=== PATIENT | female | born 1950 | race Caucasian/White ===

== ENCOUNTER 2016-06-25 11:58 | Emergency (ER) | payer OTHER ==
[~2016-06-25 11:58] MED LIST: ALBU8.5H3 IH; ALPR0.254 PO; ATEN100T PO; ESCI10TA PO; FLUT1DIS IH; HYDR25TA9 PO; LEVO25TA4 PO; LORA10TA3 PO; METAMUCIL425 GM PO; MONT10TA9 PO; POLY17PO5 PO; POTA10TA10 PO
[2016-06-25 12:05] VITALS: BP 149/62
[2016-06-25] MEDS ORDERED: IV NORMAL SALINE 1,000ML 1,000 ML IV SCH (12:14)
--- NOTE | 2016-06-25 12:39 | RAD ---
Indication: Mid abdominal pain and nausea for one week. Technique: Abdominal series with PA chest radiograph was obtained. Comparison is from July 31, 2014. Findings: The lungs are clear. The heart is not enlarged. Bowel gas pattern is nonobstructive. There is no free air. Postsurgical changes are noted in the abdomen. There are mild degenerative changes in the spine. There are calcified phleboliths in the pelvis. Impression: Nonobstructive bowel gas pattern.
[2016-06-25] MEDS ORDERED: FAMOTIDINE 20 MG/2 ML VIAL IVP ONE (12:45)
[2016-06-25] MEDS ORDERED: ONDANSETRON PF 4 MG/2 ML VIAL. IV ONE (12:45)
[2016-06-25] MEDS ORDERED: LIDO:MAALOX 1:1 20 ML SINGLE DOSE PO ONE (13:10)
[2016-06-25] MEDS ORDERED: methylPREDNISolone SOD SUCC PF 125 MG/2 ML VIAL. IV ONE (13:10)
[2016-06-25 13:19] LABS: BASO % 0 % (0-3); EOS % 0 % (0-3); HEMATOCRIT 41.6 % (36.0-47.0); HEMOGLOBIN 13.5 g/dL (12.0-15.5); LYMPH # 1.6 x10^3/uL (1.0-4.8); LYMPH % 11 % (24-48); MEAN CORPUSCULAR HEMOGLOBIN 28 pg (25-35); MEAN CORPUSCULAR HGB CONC 32 g/dL (31-37); MEAN CORPUSCULAR VOLUME 86 fL (79-100); MONO # 1.6 x10^3/uL (0.0-1.1); MONO % 11 % (0-9); NEUT # 11.2 x10^3uL (1.8-7.7); NEUT % 78 % (31-73); PLATELET COUNT 271 x10^3/uL (140-400); RED BLOOD COUNT 4.86 x10^6/uL (3.50-5.40); RED CELL DISTRIBUTION WIDTH 13.8 % (11.5-14.5); WHITE BLOOD COUNT 14.4 x10^3/uL (4.0-11.0)
[2016-06-25 13:30] LABS: ALBUMIN 4.2 g/dL (3.4-5.0); ALBUMIN/GLOBULIN RATIO 0.9 (1.0-1.7); CALCIUM 10.7 mg/dL (8.5-10.1); CREATININE 1.3 mg/dL (0.6-1.0); POTASSIUM 3.4 mmol/L (3.5-5.1); TOTAL BILIRUBIN 0.6 mg/dL (0.2-1.0)
--- NOTE | 2016-06-25 13:38 | EKG ---
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
[2016-06-25 13:54] LABS: BARBITURATES NEG (NEG); BENZODIAZEPINES POS (NEG); CANNABINOIDS NEG (NEG); COCAINE NEG (NEG); METHADONE NEG (NEG); OPIATES NEG (NEG); PHENCYCLIDINE NEG (NEG)
[2016-06-25 13:55] LABS: AMPHETAMINE/METHAMPHETAMINE NEG (NEG)
[2016-06-25 14:03] LABS: BILIRUBIN,URINE SMALL (NEG); CLARITY,URINE CLOUDY; COLOR,URINE AMBER; GLUCOSE,URINE NEG (NEG)
[2016-06-25 14:05] LABS: BACTERIA,URINE FEW /HPF (0-FEW); NITRITE,URINE NEG (NEG); RBC,URINE 0 /HPF (0-2); SQUAMOUS EPITHELIAL CELL,UR OCC /LPF; UROBILINOGEN,URINE 1 mg/dL (0.2 mg/dL)
[2016-06-25 14:06] LABS: HYALINE CASTS, URINE MOD /HPF
--- NOTE | 2016-06-25 14:13 | PHYS DOC ---
General Chief Complaint: DIFFICULTY SWALLOWING Stated Complaint: N/V X 2 WK Time Seen by MD: 12:13 Source: patient Exam Limitations: no limitations Problems: History of Present Illness Initial Comments Pt is 66/F to ED c/o difficulty swallowing. Pt has h/o swallowing difficulty, had stricture/esophageal dilatation in past. Last few weeks pt having increasing problems with solid foods. At times they feel stuck and pt will choke and have n/v. Sx are intermittent primarily when eating, no difficulty swallowing secretions no abdominal discomfort no cp/sob. Timing/Duration: 1 week, getting worse Severity: mild Modifying Factors: worse with eating, improves with rest Associated Symptoms: nausea/vomiting Allergies: Coded Allergies: Tetanus Vaccines & Toxoid (Verified Allergy, Intermediate, "Swelling & redness", 08/30/13) aspirin (Verified Allergy, Intermediate, "Ate stomach lining", 08/30/13) Penicillins (Verified Allergy, Mild, "It bothers my stomach", 08/30/13) Past Medical History Medical History: asthma, hypertension, other (esophageal stricture, HTN, constipation, GERD, HTN, hypothyroid, migraine, H. pylori) Surgical History: appendectomy, cholecystectomy, other Social History Smoker: non-smoker Alcohol: none Drugs: none Review of Systems Constitutional: denies chills, denies diaphoresis, denies fever, denies malaise EENTM: see HPI Respiratory: coughdenies shortness of breath, denies wheezing Cardiovascular: denies chest pain, denies palpitations, denies syncope Gastrointestinal: denies abdominal pain, denies diarrhea, denies nausea, vomiting Musculoskeletal: denies back pain, denies joint swelling, denies neck pain Psychiatric/Neurological: denies headache, denies numbness, denies paresthesia Physical Exam General Appearance: no apparent distress, obese Ear, Nose, Throat: hearing grossly normal, normal ENT inspection, normal pharynx Neck: non-tender, supple Respiratory: normal breath sounds, no respiratory distress Cardiovascular: normal peripheral pulses, regular rate, rhythm Gastrointestinal: non tender, soft Extremities: non-tender, normal inspection 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 PHYSICIAN: BSII KIMBROUGH DO REASON: n/v PROCEDURE: ACUTE ABDOMEN SERIES Indication: Mid abdominal pain and nausea for one week. Technique: Abdominal series with PA chest radiograph was obtained. Comparison is from July 31, 2014. Findings: The lungs are clear. The heart is not enlarged. Bowel gas pattern is nonobstructive. There is no free air. Postsurgical changes are noted in the abdomen. There are mild degenerative changes in the spine. There are calcified phleboliths in the pelvis. Impression: Nonobstructive bowel gas pattern. DICTATED AND SIGNED BY: LAURA AGUSTIN MD DATE: 06/25/16 1236 CC: REJI WANG; BISI KIMBROUGH DO ~ Pertinent Labs: WBC 14.4, K+ 3.4, BUN 31, Cr 1.3, CK 251 No evidence aspiration. Liquid K+ rx per pt request, I discussed tx plan including contacting GI tomorrow. Pt expressed agreement/understanding. Departure Time of Disposition: 14:23 Disposition: 01 HOME, SELF-CARE Diagnosis: esophageal stricture, hypokalemia, hypovolemia Condition: GOOD Patient Instructions: Dehydration, Adult, [id number], Esophageal Stricture, Hypokalemia-Brief Additional Instructions: Rest, no strenuous activity. Aggressive hydration, frequent small sips. Clear liquids, advance slowly as tolerated. Rx: KCL liquid suspension, take as directed instead of tablets for now while difficulty swallowing. Call your coat maker tomorrow morning to schedule next available appointment. Return to ED with new or changing symptoms. BISI KIMBROUGH DO Jun 25, 2016 14:13
[2016-06-25] MEDS ORDERED: POTASSIUM CHLORIDE 20 MEQ/15 ML ORAL LIQUID. PO ONE (14:30)
== END 2016-06-25 15:01 | disposition home or self-care (01) ==
LOC: ER 12:00
DX: K22.2 Esophageal obstruction (principal); E86.1 Hypovolemia; E87.6 Hypokalemia; G43.909 Migraine, unspecified, not intractable, without status migrainosus; E03.9 Hypothyroidism, unspecified; I10 Essential (primary) hypertension; J45.909 Unspecified asthma, uncomplicated; K21.9 Gastro-esophageal reflux disease without esophagitis; Z88.0 Allergy status to penicillin; Z90.49 Acquired absence of other specified parts of digestive tract; Z88.6 Allergy status to analgesic agent; Z88.7 Allergy status to serum and vaccine
CPT/HCPCS: 36415; 74022; 80053; 80305; 81001; 82550; 83690; 84484; 85027; 93005; 96361; 96374; 96375; 99285; J2405; J2930; S0028; G0481; J7030

== ENCOUNTER 2017-01-12 00:43 | Emergency (ER) | payer MEDICARE, OTHER ==
[~2017-01-12] VITALS: Ht 167.6 cm; Wt 81.2 kg
[~2017-01-12 00:43] MED LIST changes: -ALBU8.5H3 IH; +ALBU8.5H8 IH; -ESCI10TA PO; +ESCITALOPRAM OX10 MG PO
[2017-01-12 02:00] VITALS: BP 130/77
--- NOTE | 2017-01-12 02:27 | PHYS DOC ---
Past History Past Medical History: Arthritis, Asthma, Bronchitis, Hypertension, Hypothyroid , Other Past Surgical History: No Surgical History Smoking: Non-smoker Alcohol Use: None Drug Use: None Adult General Chief Complaint Chief Complaint: SHORTNESS OF BREATH HPI HPI Patient is a 66-year-old female brought to the ED by family members with the concern for carbon monoxide exposure. The patient has a developmental disability. She lives in an apartment. Tonight about 9:00, her carbon monoxide detector began to alarm. About 2 hours later, she called family to tell them. The patient's niece states that the batteries were and the carbon monoxide detector was , but they called the fire department who said that the carbon monoxide level was 7. Later, the gas company came and said it was 8. At this time, they have not identified a source of the carbon monoxide. Patient answers positively to all questions. Her niece stated that because she has developmental disability, she is probably not answering accurately. The patient does state that she has a headache and "bronchitis", also answers yes to nausea, lightheadedness. Review of Systems Review of Systems Review of systems was not felt to be accurate due to the patient's developmental disability. Allergies Allergies Allergies Coded Allergies Type Severity Reaction Last Updated Verified Tetanus Vaccines & Toxoid Allergy Intermediate "Swelling & redness" 08/30/13 Yes aspirin Allergy Intermediate "Ate stomach lining" 08/30/13 Yes Penicillins Allergy Mild "It bothers my stomach" 08/30/13 Yes Physical Exam Physical Exam Constitutional: Well developed, well nourished, no acute distress, non-toxic appearance. Alert, appears to be mentating at her baseline, not dyspneic, warm and dry. HENT: Normocephalic, atraumatic, bilateral external ears normal, nose normal. [] Eyes: conjunctiva normal, no discharge. [] Neck: Normal range of motion, no stridor. [] Cardiovascular:Heart rate regular rhythm, no murmur [] Lungs & Thorax: Bilateral breath sounds clear to auscultation [] Skin: Warm, dry, no erythema, no rash. [] Extremities: No tenderness, no cyanosis, no clubbing, ROM intact, no edema. [] Neurologic: Alert, normal motor function, no focal deficits noted. [] Current Patient Data Vital Signs Vital Signs Date Time Temp Pulse Resp B/P (MAP) Pulse Ox O2 Delivery O2 Flow Rate FiO2 01/12/17 00:43 74 18 98 Room Air Lab Results Laboratory Tests Test 01/12/17 01:15 Carbon Monoxide, Quantitative 3.7 EKG EKG [] Radiology/Procedures Radiology/Procedures [] Course & Med Decision Making Course & Med Decision Making Pertinent Labs and Imaging studies reviewed. (See chart for details) The noninvasive finger probe carbon monoxide detector was initially used, but readings ranged from below 1 to above 6. We were not able to get what appeared to be an accurate reading from the noninvasive probe. Pulse ox on room air 97-99 %. The patient was placed on oxygen by nasal cannula while obtaining the carboxyhemoglobin level. Venous carboxyhemoglobin level was obtained and is 3.7. The patient is not a smoker, I feel that this probably is a slight elevation for her, but not clinically significant. I discussed this with the patient and her family. Her family plan to take her home to their house today. She will not be returning to her apartment until they can figure out what's going on with the carbon monoxide. See instructions for plan. [] Dragon Disclaimer Dragon Disclaimer This chart was dictated in whole or in part using Voice Recognition software in a busy, high-work load, and often noisy Emergency Department environment. It may contain unintended and wholly unrecognized errors or omissions. Departure Departure: Impression: Primary Impression: Carbon monoxide exposure Disposition: 01 HOME, SELF-CARE Condition: STABLE Referrals: REJI WANG (PCP) Patient Instructions: Carbon Monoxide Poisoning, [id number] Additional Instructions: Tonight, your blood carbon monoxide level was 3.7. This is a slightly high level for a person who does not smoke cigarettes, but it is not high enough to cause problems or symptoms. Because you are uncertain where you might have been exposed to carbon monoxide, I recommend not returning to your home until the authorities are able to determine that the level is safe. Also, before you return to your home, purchase a new carbon monoxide level and ensure that it has batteries and has been tested. BELKIS PRADO MD Jan 12, 2017 02:27
== END 2017-01-12 02:33 | disposition home or self-care (01) ==
LOC: ER 00:46
DX: Z77.028 Contact with and (suspected) exposure to other hazardous aromatic compounds (principal); I10 Essential (primary) hypertension; E03.9 Hypothyroidism, unspecified; J45.909 Unspecified asthma, uncomplicated; M19.90 Unspecified osteoarthritis, unspecified site; Z88.6 Allergy status to analgesic agent; Z88.0 Allergy status to penicillin; Z88.7 Allergy status to serum and vaccine
CPT/HCPCS: 36415; 82375; 99283

== ENCOUNTER 2017-08-28 21:47 | Inpatient (IN) | payer MEDICARE, OTHER ==
[~2017-08-28] VITALS: Ht 160 cm; Wt 85.3 kg
[2017-08-28] MEDS ORDERED: LIDOCAINE 2% 20 ML VIAL. IJ ONE (22:30)
--- NOTE | 2017-08-28 22:43 | PHYS DOC ---
Past History Past Medical History: Arthritis, Asthma, Bronchitis, Depression, GERD, High Cholesterol, Hypertension, Hypothyroid, Other Past Surgical History: No Surgical History Smoking: Non-smoker Alcohol Use: None Drug Use: None Adult General Chief Complaint Chief Complaint: LACERATION/AVULSION HPI HPI Patient is a 67 year old female who presents with complaint of head injury after suffering a fall at home. Patient states that she tried to get up to go use the restroom when she became very lightheaded and dizzy. This caused the patient to fall. The patient struck the top of her head on a garbage can on the floor. Patient accompanied by family member who is concerned that the patient may have had a syncopal episode. This reportedly took place this morning. The patient has no significant cardiac history and had no recent cardiac evaluation. Patient does confirm that she felt very dizzy and lightheaded prior to falling. Denies any chest pain currently but states that she has had "heartburn" off and on over the past several days. Denies any shortness of breath or fever. The patient states that she had bleeding from her scalp and has a laceration as a result of her fall. The patient was able to clean this up prior to arrival. Review of Systems Review of Systems Constitutional: Denies fever or chills [] Eyes: Denies change in visual acuity, redness, or eye pain [] HENT: Denies nasal congestion or sore throat [] Respiratory: Denies cough or shortness of breath [] Cardiovascular: Denies chest pain or edema[] GI: Denies abdominal pain, nausea, vomiting, bloody stools or diarrhea [] : Denies dysuria or hematuria [] Musculoskeletal: Denies back pain or joint pain [] Integument: Scalp laceration[] Neurologic: Dizziness, lightheadedness, denies headache or focal weakness[] All other systems were reviewed and found to be within normal limits, except as documented in this note. Current Medications Current Medications Current Medications Medications (Trade) Dose Ordered Sig/Deshawn Start Time Stop Time Status Last Admin Dose Admin Lidocaine HCl 20 ml 1X ONCE 08/28/17 22:30 08/28/17 22:32 DC Allergies Allergies Allergies Coded Allergies Type Severity Reaction Last Updated Verified Tetanus Vaccines and Toxoid Allergy Intermediate "Swelling & redness" 08/30/13 Yes aspirin Allergy Intermediate "Ate stomach lining" 08/30/13 Yes Penicillins Allergy Mild "It bothers my stomach" 08/30/13 Yes shellfish derived Allergy Unknown 08/28/17 Yes Physical Exam Physical Exam Constitutional: Well developed, well nourished, no acute distress, non-toxic appearance. [] HENT: Normocephalic, 7 cm curvilinear laceration to the parietal scalp, bilateral external ears normal, oropharynx moist, no oral exudates, nose normal. [] Eyes: PERRLA, EOMI, conjunctiva normal, no discharge. [] Neck: Normal range of motion, no tenderness, supple, no stridor. [] Cardiovascular:Heart rate regular rhythm, no murmur [] Lungs & Thorax: Bilateral breath sounds clear to auscultation [] Abdomen: Bowel sounds normal, soft, no tenderness, no masses, no pulsatile masses. [] Skin: Warm, dry, no erythema, no rash. [] Back: No tenderness, no CVA tenderness. [] Extremities: No tenderness, no cyanosis, no clubbing, ROM intact, no edema. [] Neurologic: Alert and oriented X 3, normal motor function, normal sensory function, no focal deficits noted. [] Current Patient Data Vital Signs Vital Signs Date Time Temp Pulse Resp B/P (MAP) Pulse Ox O2 Delivery O2 Flow Rate FiO2 08/28/17 21:50 97.8 67 18 99 Room Air Lab Results Laboratory Tests Test 08/28/17 22:30 White Blood Count 4.5 x10^3/uL Red Blood Count 4.36 x10^6/uL Hemoglobin 12.2 g/dL Hematocrit 37.1 % Mean Corpuscular Volume 85 fL Mean Corpuscular Hemoglobin 28 pg Mean Corpuscular Hemoglobin Concent 33 g/dL Red Cell Distribution Width 16.8 % Platelet Count 208 x10^3/uL Neutrophils (%) (Auto) 65 % Lymphocytes (%) (Auto) 23 % Monocytes (%) (Auto) 10 % Eosinophils (%) (Auto) 1 % Basophils (%) (Auto) 1 % Neutrophils # (Auto) 2.9 x10^3uL Lymphocytes # (Auto) 1.0 x10^3/uL Monocytes # (Auto) 0.4 x10^3/uL Eosinophils # (Auto) 0.0 x10^3/uL Basophils # (Auto) 0.0 x10^3/uL Sodium Level 143 mmol/L Potassium Level 3.7 mmol/L Chloride Level 106 mmol/L Carbon Dioxide Level 28 mmol/L Anion Gap 9 Blood Urea Nitrogen 27 mg/dL Creatinine 1.2 mg/dL Estimated GFR (Cockcroft-Gault) 44.8 BUN/Creatinine Ratio 23 Glucose Level 145 mg/dL Calcium Level 9.4 mg/dL Total Bilirubin 0.4 mg/dL Aspartate Amino Transf (AST/SGOT) 32 U/L Alanine Aminotransferase (ALT/SGPT) 27 U/L Alkaline Phosphatase 55 U/L Troponin I Quantitative < 0.017 ng/mL Total Protein 7.9 g/dL Albumin 3.5 g/dL Albumin/Globulin Ratio 0.8 Current Medications Medications (Trade) Dose Ordered Sig/Deshawn Route PRN Reason Start Time Stop Time Status Last Admin Dose Admin Lidocaine HCl 20 ml 1X ONCE IJ 08/28/17 22:30 08/28/17 22:32 DC 08/28/17 23:10 EKG EKG Interpreted by me: Heart rate 74, sinus rhythm, occasional PVCs, leftward axis, no acute ST/T-wave abnormalities present[] Radiology/Procedures Radiology/Procedures [address] [address] IMAGING REPORT Signed PATIENT: YAMILETH BARRON ACCOUNT: [id number] : 1950 LOCATION: ER AGE: 67 SEX: F EXAM STATUS: REG ER ORD. PHYSICIAN: MENDEZ REES MD REASON: possible syncopal episode, head injury PROCEDURE: CT HEAD WO CONTRAST CT HEAD WO CONTRAST Clinical indications: DIZZINESS, POSSIBLE SYNCOPE EPISODE, FALL, HIT HEAD - LACERATION ON TOP OF HEAD NEAR OCCIPTAL REGION COMPARISON: June 30, 2014. Technique: Noncontrast axial cross sectional scanning of the head was performed. PQRS compliance Statement One or more of the following individualized dose reduction techniques were utilized for this study: 1. Automated exposure control 2. Adjustment of the mA and/or kV according to patient size 3. Use of iterative reconstruction technique Findings: No acute intracranial hemorrhage or midline shift or mass-effect or hydrocephalus or extra-axial fluid collection is seen. No focal hypodense area or sulci effacement is seen to indicate an acute infarct or edema radiographically. No skull fracture or pneumocephalus is seen. No opacification of the mastoid sinuses or the paranasal sinuses is seen. The maxillary sinuses are not completely seen in this study. Impression: No acute intracranial abnormality is seen. Electronically signed by: Leana Silverio MD (08/28/2017 11:02 PM) [facility] DICTATED AND SIGNED BY: LEANA SILVERIO MD DATE: 08/28/17 [id number] CC: MENDEZ REES MD; REJI WANG ~ One view AP chest x-ray interpreted by me: No infiltrate, no effusions, normal cardiac silhouette[] Course & Med Decision Making Course & Med Decision Making Pertinent Labs and Imaging studies reviewed. (See chart for details) Laceration repaired as outlined in the procedure note. Head CT negative. Of concern is the cause of the patient's fall as patient may have experienced a syncopal episode resulting in her fall and head injury. Given lack of any previous workup, the patient is appropriate for admission for further evaluation of syncope. I spoke with Dr. Toscano who accepted care patient in hospital. A consult was placed to Dr. Tenorio of cardiology to follow with patient in hospital. Dragon Disclaimer Dragon Disclaimer This electronic medical record was generated, in whole or in part, using a voice recognition dictation system. Laceration Repair Lac Repair Indication: Scalp laceration Procedure: The patient was placed in the appropriate position and anesthesia around the laceration was achieved with injection of lidocaine 2%. The area was then cleansed with high-pressure normal saline. The laceration was closed using surgical yanci. The wound area was then dressed with clean gauze. Total repaired wound length: 7 cm. Other Items: Total stable count: 6 The patient tolerated the procedure without difficulty. Complications: None. Departure Departure: Impression: Primary Impression: Syncope Additional Impressions: Scalp laceration Hypertension Hyperlipidemia Disposition: 09 ADMITTED INPATIENT Admitting Physician: Maricruz Toscano Condition: STABLE Referrals: REJI WANG (PCP) Problem Qualifiers Primary Impression: Syncope Syncope type: unspecified Qualified Codes: R55 - Syncope and collapse Additional Impressions: Scalp laceration Encounter type: initial encounter Qualified Codes: S01.01XA - Laceration without foreign body of scalp, initial encounter Hypertension Hypertension type: essential hypertension Qualified Codes: I10 - Essential ( primary) hypertension Hyperlipidemia Hyperlipidemia type: unspecified Qualified Codes: E78.5 - Hyperlipidemia, unspecified MENDEZ REES MD August 28, 2017 22:43
[2017-08-28 22:49] LABS: BASO % 1 % (0-3); EOS % 1 % (0-3); HEMATOCRIT 37.1 % (36.0-47.0); HEMOGLOBIN 12.2 g/dL (12.0-15.5); LYMPH % 23 % (24-48); MEAN CORPUSCULAR HEMOGLOBIN 28 pg (25-35); MEAN CORPUSCULAR HGB CONC 33 g/dL (31-37); MEAN CORPUSCULAR VOLUME 85 fL (79-100); MONO # 0.4 x10^3/uL (0.0-1.1); MONO % 10 % (0-9); NEUT # 2.9 x10^3uL (1.8-7.7); NEUT % 65 % (31-73); PLATELET COUNT 208 x10^3/uL (140-400); RED BLOOD COUNT 4.36 x10^6/uL (3.50-5.40); RED CELL DISTRIBUTION WIDTH 16.8 % (11.5-14.5); WHITE BLOOD COUNT 4.5 x10^3/uL (4.0-11.0)
--- NOTE | 2017-08-28 22:57 | EKG ---
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
--- NOTE | 2017-08-28 23:05 | RAD ---
CT HEAD WO CONTRAST Clinical indications: DIZZINESS, POSSIBLE SYNCOPE EPISODE, FALL, HIT HEAD - LACERATION ON TOP OF HEAD NEAR OCCIPTAL REGION COMPARISON: June 30, 2014. Technique: Noncontrast axial cross sectional scanning of the head was performed. PQRS compliance Statement One or more of the following individualized dose reduction techniques were utilized for this study: 1. Automated exposure control 2. Adjustment of the mA and/or kV according to patient size 3. Use of iterative reconstruction technique Findings: No acute intracranial hemorrhage or midline shift or mass-effect or hydrocephalus or extra-axial fluid collection is seen. No focal hypodense area or sulci effacement is seen to indicate an acute infarct or edema radiographically. No skull fracture or pneumocephalus is seen. No opacification of the mastoid sinuses or the paranasal sinuses is seen. The maxillary sinuses are not completely seen in this study. Impression: No acute intracranial abnormality is seen. Electronically signed by: Neftaly Silverio MD (08/28/2017 11:02 PM) [facility]
[2017-08-28 23:11] LABS: ALBUMIN 3.5 g/dL (3.4-5.0); ALBUMIN/GLOBULIN RATIO 0.8 (1.0-1.7); CALCIUM 9.4 mg/dL (8.5-10.1); CREATININE 1.2 mg/dL (0.6-1.0); GFR 44.8; POTASSIUM 3.7 mmol/L (3.5-5.1); TOTAL BILIRUBIN 0.4 mg/dL (0.2-1.0); TOTAL PROTEIN 7.9 g/dL (6.4-8.2)
[2017-08-29] VITALS (8 sets, daily range): BP systolic 101–153; BP diastolic 46–80
--- NOTE | 2017-08-29 00:05 | RAD ---
AP portable chest radiograph 08/28/2017 Clinical History: Dizziness and syncope. An AP erect portable digital radiograph of the chest was obtained. Comparison study is dated 06/25/2016. The cardiac silhouette is mildly enlarged. The thoracic aorta is mildly tortuous. Atherosclerotic calcification of the thoracic aorta is seen. No acute pulmonary infiltrate is noted. No pneumothorax or pleural effusion is seen. Degenerative changes are seen involving the thoracic spine and both shoulders. Impression: No acute abnormality is seen. Electronically signed by: Fab Sweeney MD (08/29/2017 12:02 AM) [facility]
[2017-08-29] MEDS: IV NORMAL SALINE 1,000ML 1,000 ML IV SCH ×2 (01:17→08:34)
[2017-08-29] MEDS: ACETAMINOPHEN 325 MG TABLET PO PRN ×4 (02:04→23:11)
[2017-08-29] MEDS ORDERED: MONT10TA6 PO (03:06)
[2017-08-29] MEDS ORDERED: ALPR1TAB6 PO (03:06)
[2017-08-29] MEDS ORDERED: METO-247 PO (03:06)
[2017-08-29] MEDS ORDERED: DULO60CA6 PO (03:06)
[2017-08-29] MEDS ORDERED: LEVO50TA5 PO (03:06)
[2017-08-29] MEDS ORDERED: POTA20TA4 PO (03:06)
[2017-08-29] MEDS ORDERED: FENO145T30 PO (03:06)
[2017-08-29] MEDS ORDERED: HYDR12.58 PO (03:06)
[2017-08-29] MEDS ORDERED: LEVO5TAB2 PO (03:06)
[2017-08-29] MEDS ORDERED: MELO15TA23 PO (03:06)
[2017-08-29] MEDS ORDERED: FOLI1TAB16 PO (03:06)
[2017-08-29] MEDS ORDERED: OMEP20CA9 PO (03:06)
[2017-08-29] MEDS ORDERED: HYDR200T5 PO (03:06)
[2017-08-29] MEDS ORDERED: METH2.5T PO (03:06)
[2017-08-29] MEDS ORDERED: [UNRECOGNIZED DRUG - CODE] PO (03:31)
[2017-08-29] MEDS: LEVOTHYROXINE 50 MCG TABLET PO SCH (06:22)
[2017-08-29] MEDS ORDERED: ALBUTEROL SULFATE 2.5 MG/3 ML NEBU. NEB PRN ×2 (07:45→14:15)
[2017-08-29] MEDS ORDERED: LACTASE 3,000 UNIT TABLET PO PRN ×2 (08:00)
[2017-08-29] MEDS: DULoxetine HCL 60 MG CAPSULE.DR PO SCH (08:28)
[2017-08-29] MEDS: METOPROLOL SUCC 24HR ER 50 MG TAB.ER.24H. PO SCH (08:29)
[2017-08-29] MEDS: FOLIC ACID 1 MG TABLET PO SCH (08:29)
[2017-08-29] MEDS: FENOFIBRATE NANOCRYSTALLIZED 145 MG TABLET PO SCH (08:29)
[2017-08-29] MEDS: MELOXICAM 15 MG TABLET. PO SCH (08:30)
[2017-08-29] MEDS: hydroCHLOROthiazide 25 MG TABLET PO SCH (08:30)
[2017-08-29] MEDS: HYDROXYCHLOROQUINE 200 MG TABLET PO SCH ×2 (08:30→17:25)
[2017-08-29] MEDS: CETIRIZINE HCL 10 MG TABLET PO SCH ×2 (09:00→21:23)
[2017-08-29] MEDS ORDERED: PSYLLIUM SEED (WITH SUGAR) PACKET. PO PRN (09:00)
[2017-08-29] MEDS ORDERED: POLYETHYLENE GLYCOL 3350 17 GM PACKET. PO PRN (09:00)
--- NOTE | 2017-08-29 09:04 | PDOC2 ---
RAND LINDA APRN 08/29/17 0904: CONSULT Date of Admission DATE: 08/29/17 TIME: 09:03 Reason for Consult: syncope Problem List Problems Medical Problems: (1) Hyperlipidemia Status: Acute (2) Hypertension Status: Acute (3) Scalp laceration Status: Acute (4) Syncope Status: Acute History of Present Illness Ms Villeda is a 67 year old female who presented to the ED after a fall. She is a fairly poor historian but does report getting up to go to the bathroom feeling very dizzy and falling to her knees. She apparently struck her head on the tub and says she just remembers blood all over. She reports having had episodes of dizziness occasionally but is unable to give details. She denies chest discomfort but does complain of dyspnea on exertion. She is [place] [facility] She says up hill she gets very short of breath which is not improved with inhalers, but going down has no symptoms. She denies palpitations or congestive symptoms. Past Medical History Arthritis, Asthma, Bronchitis, Depression, GERD, High Cholesterol, Hypertension , Hypothyroid, depression, anxiety Past Surgical History: Appendectomy, Cholecystectomy, Hysterectomy (bilateral oophorectomy) Family History CAD, CHf Social History non smoker, no significant ETOH, no illicit drugs Current Medications Current Medications Lidocaine HCl 20 ml 1X ONCE IJ Last administered on 08/28/17at 23:10; Start at 22:30; Stop 08/28/17 at 22:32; Status DC Sodium Chloride 1,000 ml @ 125 mls/hr Q8H IV Last administered on 08/29/17at 08 :34; Start 08/29/17 at 00:15; Stop 08/30/17 at 00:14 Acetaminophen (Tylenol) 650 mg PRN Q4HRS PRN PO FEVER Last administered on 08/29at 06:26; Start 08/29/17 at 00:15; Stop 08/30/17 at 00:14 Levothyroxine Sodium (Synthroid) 50 mcg DAILY06 PO Last administered on at 06:22; Start 08/29/17 at 06:00 Potassium Chloride (Klor-Con) 20 meq QHS PO ; Start 08/29/17 at 21:00 Duloxetine HCl (Cymbalta) 60 mg DAILY PO Last administered on 08/29/17 08:28; Start 08/29/17 at 09:00 Fenofibrate (Tricor) 145 mg DAILY PO Last administered on 08/29/17 08:29; Start 08/29/17 at 09:00 Folic Acid (Folic Acid) 1 mg DAILY PO Last administered on 08/29/17 08:29; Start 08/29/17 at 09:00 Hydrochlorothiazide (Hydrodiuril) 25 mg DAILY PO Last administered on 08:30; Start 08/29/17 at 09:00 Hydroxychloroquine Sulfate (Plaquenil) 200 mg BIDWMEALS PO Last administered on 08/29/17 08:30; Start 08/29/17 at 08:00 Lactase (Lactaid) 3,000 unit PRN BFRMEAL PRN PO GI SYMPTOMS; Start 08/29/17 at 08:00; Stop 08/29/17 at 08:00; Status DC Cetirizine HCl (ZyrTEC) 10 mg QHS PO ; Start 08/29/17 at 09:00 Meloxicam (Mobic) 15 mg DAILY PO Last administered on 08/29/17 08:30; Start at 09:00 Methotrexate (Rheumatrex) 10 mg QFR PO ; Start 08/31/17 at 16:00 Metoprolol Succinate (Toprol Xl) 100 mg DAILY PO Last administered on 08:29; Start 08/29/17 at 09:00 Montelukast Sodium (Singulair) 10 mg QHS PO ; Start 08/29/17 at 21:00 Pantoprazole Sodium (Protonix) 40 mg DAILYAC PO ; Start 08/30/17 at 09:00 Polyethylene Glycol (miraLAX) 17 gm PRN DAILY PRN PO CONSTIPATION Last administered on 08/29/17 08:30; Start 08/29/17 at 09:00 Psyllium Hydrophilic Mucilloid (Metamucil) 1 pkt PRN DAILY PRN PO CONSTIPATION Last administered on 08/29/17 08:30; Start 08/29/17 at 09:00 Albuterol Sulfate (Ventolin) 2.5 mg PRN Q6HRS PRN NEB SHORTNESS OF BREATH; Start 08/29/17 at 07:45 Lactase (Lactaid) 9,000 unit PRN BFRMEAL PRN PO GI SYMPTOMS; Start 08/29/17 at 08:00 Active Scripts Active Reported Lactase Fast Acting (Lactase) 9,000 Unit Tablet 9,000 Unit PO PRN Levothyroxine Sodium 50 Mcg Tablet 50 Mcg PO DAILY06 Metoprolol Succinate ( Xl ) (Metoprolol Succinate) 100 Mg Tab.er.24h 100 Mg PO DAILY Levocetirizine Dihydrochloride 5 Mg Tablet 5 Mg PO QHS Singulair Tablet (Montelukast Sodium) 10 Mg Tablet 10 Mg PO HS Cymbalta (Duloxetine Hcl) 60 Mg Capsule.dr 60 Mg PO DAILY Alprazolam 1 Mg Tablet 1 Mg PO QHS Hydrochlorothiazide Tablet (Hydrochlorothiazide) 12.5 Mg Tablet 25 Mg PO DAILY Folic Acid 1 Mg Tablet 1 Mg PO DAILY Methotrexate (Methotrexate Sodium) 2.5 Mg Tablet 4 Tab PO QFR Fenofibrate (Fenofibrate Nanocrystallized) 145 Mg Tablet 145 Mg PO DAILY Hydroxychloroquine Sulfate 200 Mg Tablet 200 Mg PO BIDWMEALS Klor-Con M20 (Potassium Chloride) 20 Meq Tab.er.prt 20 Meq PO QHS Omeprazole 20 Mg Capsule.dr 20 Mg PO BID Meloxicam 15 Mg Tablet 15 Mg PO DAILY Metamucil (Psyllium Seed) 425 Gm Powder 425 Gm PO PRN DAILY PRN Miralax (Polyethylene Glycol 3350) 17 Gm Powd.pack 17 Gm PO PRN DAILY PRN Proair Hfa Inhaler (Albuterol Sulfate) 8.5 Gm Hfa.aer.ad 8.5 Gm IH Advair 100-50 Diskus (Fluticasone/Salmeterol) 1 Each Disk.w.dev 1 Each IH Allergies: Coded Allergies: Tetanus Vaccines and Toxoid (Verified Allergy, Intermediate, "Swelling & redness", 08/30/13) aspirin (Verified Allergy, Intermediate, "Ate stomach lining", 08/30/13) Penicillins (Verified Allergy, Mild, "It bothers my stomach", 08/30/13) shellfish derived (Verified Allergy, Unknown, 08/28/17) Review of System as per HPI General: Alert, Oriented X3, Cooperative, No acute distress HEENT: EOMI, Mucous membr. moist/pink Lungs: Clear to auscultation Heart: Regular rate, Normal S1, Normal S2 Abdomen: Normal bowel sounds, Soft Extremities: No cyanosis, Normal pulses Neuro: Normal speech VITALS Vital Signs Date Time Temp Pulse Resp B/P (MAP) Pulse Ox O2 Delivery O2 Flow Rate FiO2 08/29/17 08:29 65 128/66 08/29/17 06:25 97.4 14 95 Room Air Labs Laboratory Tests Test 08/28/17 22:30 White Blood Count 4.5 x10^3/uL (4.0-11.0) Red Blood Count 4.36 x10^6/uL (3.50-5.40) Hemoglobin 12.2 g/dL (12.0-15.5) Hematocrit 37.1 % (36.0-47.0) Mean Corpuscular Volume 85 fL (79-100) Mean Corpuscular Hemoglobin 28 pg (25-35) Mean Corpuscular Hemoglobin Concent 33 g/dL (31-37) Red Cell Distribution Width 16.8 % (11.5-14.5) Platelet Count 208 x10^3/uL (140-400) Neutrophils (%) (Auto) 65 % (31-73) Lymphocytes (%) (Auto) 23 % (24-48) Monocytes (%) (Auto) 10 % (0-9) Eosinophils (%) (Auto) 1 % (0-3) Basophils (%) (Auto) 1 % (0-3) Neutrophils # (Auto) 2.9 x10^3uL (1.8-7.7) Lymphocytes # (Auto) 1.0 x10^3/uL (1.0-4.8) Monocytes # (Auto) 0.4 x10^3/uL (0.0-1.1) Eosinophils # (Auto) 0.0 x10^3/uL (0.0-0.7) Basophils # (Auto) 0.0 x10^3/uL (0.0-0.2) Sodium Level 143 mmol/L (136-145) Potassium Level 3.7 mmol/L (3.5-5.1) Chloride Level 106 mmol/L (98-107) Carbon Dioxide Level 28 mmol/L (21-32) Anion Gap 9 (6-14) Blood Urea Nitrogen 27 mg/dL (7-20) Creatinine 1.2 mg/dL (0.6-1.0) Estimated GFR (Cockcroft-Gault) 44.8 BUN/Creatinine Ratio 23 (6-20) Glucose Level 145 mg/dL (70-99) Calcium Level 9.4 mg/dL (8.5-10.1) Total Bilirubin 0.4 mg/dL (0.2-1.0) Aspartate Amino Transf (AST/SGOT) 32 U/L (15-37) Alanine Aminotransferase (ALT/SGPT) 27 U/L (14-59) Alkaline Phosphatase 55 U/L (46-116) Troponin I Quantitative < 0.017 ng/mL (0-0.055) Total Protein 7.9 g/dL (6.4-8.2) Albumin 3.5 g/dL (3.4-5.0) Albumin/Globulin Ratio 0.8 (1.0-1.7) Images EKG - sinus rhythm, leftward axis, PVCs. no acute abnormalities. CT - Impression: No acute intracranial abnormality is seen. Assessment/Plan 1. s/p fall, possible syncope 2. lightheadedness/dizziness 3. dyspnea on exertion - possible anginal equivalent 4. hypertension 5. hyperlipidemia Will check echo and carotid duplex, orthostatic VS and plan for MPI in am. Outpatient event monitoring. ADI BAR MD 08/29/17 1254: CONSULT Assessment/Plan Pt. seen and examined. Agree with above EMERGENCY RESPONSE COORDINATOR Note. Poor historian. Non-specific symptoms. Plan for MPI in a.m. Thanks for consultation. RAND LINDA APRN August 29, 2017 09:04 ADI BAR MD August 29, 2017 12:54
--- NOTE | 2017-08-29 16:29 | CARD ---
MR#: [id number] Date of Study: 08/29/2017 Ordering Physician: RAND LINDA, Referring Physician: WIL PECK, Tech: BRIAN Stout APPROVED REPORT EXAM: Two-dimensional and M-mode echocardiogram with Doppler and color Doppler. Other Information Quality : Fair INDICATION Syncope Fall 2D DIMENSIONS Left Atrium(2D)3.7 (1.6-4.0cm)IVSd1.2 (0.7-1.1cm) Aortic Root(2D)1.8 (2.0-3.7cm)LVDd5.1 (3.9-5.9cm) LVOT Diameter1.7 (1.8-2.4cm)PWd1.2 (0.7-1.1cm) LVDs3.1 (2.5-4.0cm)FS (%) 23.0 % LVEF(%)55.0 (>50%) Aortic Valve AoV Peak Cody.125.0cm/Simin Peak GR.6.2mmHg LVOT Peak Cody.96.9cm/sAVA (VMAX)1.79cm2 Mitral Valve MV E Ssshjqyr125.1cm/sMV DECEL [id number] MV A Noxbjmcw096.4cm/sMV OQF47ow E/A Ratio0.9MVA (PHT)4.85cm2 Tricuspid Valve TR P. [id number]/sRAP [id number] TR Peak Gr.96wrReTMOD07iiKj LEFT VENTRICLE The left ventricle is normal size. There is borderline concentric left ventricular hypertrophy. The l eft ventricular systolic function is normal and the ejection fraction is within normal range. The Eje ction Fraction is 55-60%. There is normal LV segmental wall motion. RIGHT VENTRICLE The right ventricle is normal size. There is normal right ventricular wall thickness. The right ventr icular systolic function is normal. ATRIA The left atrium size is normal. The right atrium size is normal. The interatrial septum is intact wit h no evidence for an atrial septal defect or patent foramen ovale as noted on 2-D or Doppler imaging. AORTIC VALVE The aortic valve is not well visualized. Doppler and Color Flow revealed trace aortic regurgitation. There is no significant aortic valvular stenosis. MITRAL VALVE The mitral valve is not well visualized. There is no mitral valve stenosis. Doppler and Color-flow re vealed mild mitral regurgitation. TRICUSPID VALVE The tricuspid valve is not well visualized. Doppler and Color Flow revealed trace tricuspid regurgita tion. PULMONIC VALVE The pulmonic valve is not well visualized. Doppler and Color Flow revealed trace pulmonic valvular re gurgitation. There is no pulmonic valvular stenosis. GREAT VESSELS The aortic root is not well visualized. The IVC is normal in size and collapses >50% with inspiration . There are very limited subcostal views. PERICARDIAL EFFUSION There is no pleural effusion. There is no evidence of significant pericardial effusion. Critical Notification Critical Value: No <Conclusion> The left ventricle is normal size. The left ventricular systolic function is normal and the ejection fraction is within normal range. The Ejection Fraction is 55-60%. There is borderline concentric left ventricular hypertrophy. There is no significant aortic valvular stenosis. Doppler and Color Flow revealed trace aortic regurgitation. Doppler and Color-flow revealed mild mitral regurgitation. Doppler and Color Flow revealed trace tricuspid regurgitation. Signed by : Reid Goodwin MD Electronically Approved : 08/29/2017 16:28:09
[2017-08-29] MEDS: traMADol 50 MG TABLET PO PRN ×2 (17:25→18:06)
--- NOTE | 2017-08-29 17:28 | HP ---
ADMIT DATE: 08/28/2017 HISTORY OF PRESENT ILLNESS: The patient is a 67-year-old female patient who apparently was brought to the Emergency Room after a fall. She was not really very specific about the surrounding of her fall, but she apparently got up to the bathroom being feeling very dizzy and falling to her knees. She apparently struck her head on the tub and she just remembered blood all over. She reports having had episodes of dizziness occasionally, but is unable to give any details. She denied any chest discomfort. Denied any palpitation. She basically was found to have sustained large scalp laceration that was stapled and was admitted for further evaluation. Her first set of cardiac enzyme was less than 0.017. The patient was admitted to do 2 more sets of cardiac enzymes, consult the Cardiology team to check her orthostatics. PAST MEDICAL HISTORY: Significant for rheumatoid arthritis, bronchial asthma, severe gastroesophageal reflux disease, hyperlipidemia, hypertension, hypothyroidism, depression, anxiety. PAST SURGICAL HISTORY: Significant for appendectomy, cholecystectomy, hysterectomy and bilateral salpingo-oophorectomy. FAMILY HISTORY: Positive for diabetes, coronary artery disease, and congestive heart failure. She is actually ____ sibling, only one brother still alive. Her father at the age of 63. He is known to have diabetes, coronary artery disease, and congestive heart failure. Mother of complications of hypertension and myocardial infarction. SOCIAL HISTORY: She lives on her own and she is fairly independent. The only thing she is unable to do is to drive her car, so her granddaughter did drive her to do shopping; however, she does not smoke, drink alcohol or use any recreational drugs. REVIEW OF SYSTEMS: She has bilateral cataracts, but denied any blurring of vision, glaucoma or macular degeneration. She has bilateral hearing aid. She did complain of stuffy nose because of environmental allergies, but denied any nosebleed or postnasal drip. Denied any sore throat, sore tongue, toothache, or hoarseness of voice. She did have difficulty swallowing and she has apparently esophageal stricture, was dilated about a year ago. She does complain of problem swallowing her pills, but has no problem with liquids. Has occasional diarrhea, but no constipation. Denied any hematemesis, melena or hematochezia. Denied any dysuria, frequency or hematuria. Denied any chest pain or shortness of breath except on exertion. Denied any orthopnea or paroxysmal nocturnal dyspnea. Denied any cough, phlegm or hemoptysis. Denied any chills, rigors, or fever. She did complain obviously of dizziness, but no vertigo. ALLERGIES: SHE IS ALLERGIC TO PENICILLIN, TETANUS VACCINE AND TOXOID. SHE IS ALSO ALLERGIC TO ASPIRIN AND SHELLFISH DERIVED PRODUCTS. MEDICATIONS: She is currently on following medications: She is on levocetirizine dihydrochloride 5 mg once a day, hydroxychloroquine sulfate 200 mg twice a day with meals. She is on methotrexate, she takes 2.5 mg, she takes 6 tablets every Sunday. She is on albuterol sulfate for ProAir 1 puff 4 times a day, fenofibrate 145 mg once a day, metoprolol succinate 100 mg once a day, Meloxicam 15 mg daily, duloxetine 60 mg daily, alprazolam 1 mg p.o. bedtime, potassium chloride 20 mEq p.o. at bedtime, hydrochlorothiazide 25 mg daily, fluticasone-salmeterol for Advair Diskus 100/50 one inhalation once a day, Singulair 10 mg at bedtime, polyethylene glycol 17 grams daily p.r.n. for constipation. She is on lactase 9000 units daily p.r.n., omeprazole 20 mg p.o. b.i.d., levothyroxine 50 mcg once a day, folic acid 1 mg once a day, psyllium seed for Metamucil 525 mg p.o. daily p.r.n. for constipation. PHYSICAL EXAMINATION: GENERAL: On arrival to the Emergency Room, she looked well and was clearly in no apparent respiratory distress. There was no pallor, jaundice, cyanosis or thyromegaly. No jugular venous distension. No lower limb edema. She has a large laceration on the scalp that was cleaned and stapled by the ER physician. HEAD, EYES, EARS, NOSE AND THROAT: Normocephalic and atraumatic. NECK: Supple. HEART: Showed normal first and second heart sounds with no gallop, rub or murmur. CHEST: Clear to auscultation. No crepitation or rhonchi. ABDOMEN: Distended, soft, and nontender. No guarding or rigidity. No organomegaly. Hernial orifice intact. Bowel sounds normal. NEUROLOGIC: She is awake, alert, and responding appropriately. Cranial nerves intact. EXTREMITIES: She moves extremities without difficulty. She apparently was able to ambulate to the bathroom with minimal assistance. LABORATORY AND DIAGNOSTIC DATA: On admission showed a white cell count 4500, hemoglobin 12, hematocrit 37, MCV 85, and platelet count of 208,000. Her chemistry showed serum sodium of 143, potassium 3.7, chloride 106, bicarbonate 28, anion gap of 9, BUN 27, creatinine 1.2, estimated GFR was 44 mL per minute. Her glucose was 145, calcium was 9.4. Total bilirubin, AST, ALT, alkaline phosphatase were normal. Her first set of cardiac enzymes show troponin to be less than 0.017. Total protein was 7.9, albumin was 3.5. She has had a CT scan of the head, which basically showed no acute intracranial hemorrhage, midline shift, mass effect, hydrocephalus or extraaxial fluid collection is seen. No focal hypodense area or sulci effacement is seen to indicate an acute infarct or edema radiographically. No skull fracture or pneumocephalus is seen. No opacification of the mastoid sinuses or paranasal sinuses seen. The maxillary sinuses are not completely seen in this study. She had an EKG, which showed that she was in sinus rhythm with a heart rate of 74 beats per minute with occasional PVCs, leftward axis, no acute ST-T changes seen. ASSESSMENT AND PLAN: The patient was admitted to do 2 more sets of cardiac enzyme, consult the Cardiology team and if need be, we will check her orthostatics. Check carotid Doppler and echocardiogram and decide further management accordingly. WIL PECK MD DR: ALDO/sadia JOB#: [id number] / [id number]
--- NOTE | 2017-08-29 18:37 | RAD ---
MR#: [id number] Date of Study: 08/29/2017 Ordering Physician: RAND LINDA, Referring Physician: WIL PECK Tech: Odalis Avitia RDMS, RVT, RTR APPROVED REPORT Patient Location: IN-PATIENT Laterality:Bilateral Indications Syncope Grayscale images of the bilateral common carotid, internal and external carotid vessels do not reveal any significant obstructive plaque. Color Doppler and spectral imaging does not show any evidence of obstructive disease. Overall peak sy stolic velocities in the internal carotid artery bilaterally are less than 70 cm/s suggestive overall of 0 to less than 50% stenosis. Bilateral ICA to CCA ratios are also within normal limits. Bilateral external carotid artery velocities are grossly within normal limits. Bilateral vertebral velocities are antegrade in nature. Risk Factors Hypertension: Hyperlipidemia Critical Notification Critical Value: No <Conclusion> No significant carotid arterial disease bilaterally. Signed by : Kal Terry, Electronically Approved : 08/29/2017 18:37:00
[2017-08-29] MEDS ORDERED: POTASSIUM CHLORIDE 20 MEQ TABLET.ER. PO SCH (21:00)
[2017-08-29] MEDS ORDERED: MONTELUKAST 10 MG TABLET. PO SCH (21:00)
--- NOTE | 2017-08-30 04:14 | PN ---
DATE: SUBJECTIVE: The patient was admitted yesterday following syncopal episode, sustaining a laceration of her scalp that was stapled by the ER physician. Her first set of cardiac enzyme was normal. She was admitted to do 2 more sets of cardiac enzyme and to consult the cardiology team. When I saw her today, she looked well and was clearly in no apparent respiratory distress. She denied any complaint. Apparently, she has been up and walking from the bed to the bathroom without difficulty. Her wound looks healing very well with no redness, tenderness or discharge. OBJECTIVE: GENERAL: On examining her, she looked pale, no jaundice, cyanosis, or thyromegaly. No jugular venous distension. No limb edema. VITAL SIGNS: Her heart rate was 58, blood pressure was 111/66, temperature was 97.4, respiratory rate was 14 and oxygen saturation was 95% on room air. HEAD, EYES, EARS, NOSE AND THROAT: Showed normocephalic, status post laceration that was stapled. NECK: Supple. HEART: Showed normal first and second sounds. No gallop, rub or murmur. CHEST: Clear to auscultation. No crepitation or rhonchi. ABDOMEN: Distended, soft, nontender. NEUROLOGIC: She is awake, alert, responding appropriately. Cranial nerves are intact. She moves extremities without difficulty. She ambulates with minimal assistance. LABORATORY DATA: No lab work done today except that another set of cardiac enzyme was normal of less than 0.017. Her fasting lipid profile showed that her serum triglycerides were 85, total cholesterol was 112, LDL cholesterol was 62, VLDL was 17, and HDL cholesterol was 33 and the ratio was 3. She was seen by the Cardiology team and the plan is to do an echocardiogram and a stress test tomorrow. We also ordered bilateral carotid Doppler. We have consulted physical and occupational therapy. We will check her orthostatics. Continue on her medication. WIL PECK MD DR: ALDO/sadia JOB#: [id number] / [id number]
[2017-08-30] MEDS: LEVOTHYROXINE 50 MCG TABLET PO SCH (05:32)
[2017-08-30 05:38] VITALS: BP 114/69
[2017-08-30 06:23] LABS: CALCIUM 8.7 mg/dL (8.5-10.1); CREATININE 0.9 mg/dL (0.6-1.0); GFR 62.5; POTASSIUM 3.8 mmol/L (3.5-5.1)
[2017-08-30 06:30] LABS: BASO % 1 % (0-3); EOS % 1 % (0-3); HEMATOCRIT 32.8 % (36.0-47.0); HEMOGLOBIN 10.6 g/dL (12.0-15.5); LYMPH # 1.4 x10^3/uL (1.0-4.8); LYMPH % 33 % (24-48); MEAN CORPUSCULAR HEMOGLOBIN 28 pg (25-35); MEAN CORPUSCULAR HGB CONC 32 g/dL (31-37); MEAN CORPUSCULAR VOLUME 85 fL (79-100); MONO # 0.4 x10^3/uL (0.0-1.1); MONO % 9 % (0-9); NEUT # 2.3 x10^3uL (1.8-7.7); NEUT % 56 % (31-73); PLATELET COUNT 171 x10^3/uL (140-400); RED BLOOD COUNT 3.85 x10^6/uL (3.50-5.40); RED CELL DISTRIBUTION WIDTH 16.8 % (11.5-14.5); WHITE BLOOD COUNT 4.1 x10^3/uL (4.0-11.0)
[2017-08-30] MEDS ORDERED: REGADENOSON 0.4 MG/5 ML DISP.SYRIN. IV ONE (08:00)
[2017-08-30] MEDS ORDERED: PANTOPRAZOLE 40 MG TABLET. PO SCH (09:00)
[2017-08-30 10:08] VITALS: BP 145/86
[2017-08-30] MEDS: FOLIC ACID 1 MG TABLET PO SCH (10:12)
[2017-08-30] MEDS: DULoxetine HCL 60 MG CAPSULE.DR PO SCH (10:12)
[2017-08-30] MEDS: HYDROXYCHLOROQUINE 200 MG TABLET PO SCH (10:12)
[2017-08-30] MEDS: METOPROLOL SUCC 24HR ER 50 MG TAB.ER.24H. PO SCH (10:13)
[2017-08-30] MEDS: hydroCHLOROthiazide 25 MG TABLET PO SCH (10:13)
[2017-08-30] MEDS: MELOXICAM 15 MG TABLET. PO SCH (10:13)
[2017-08-30] MEDS: FENOFIBRATE NANOCRYSTALLIZED 145 MG TABLET PO SCH (10:14)
--- NOTE | 2017-08-30 11:29 | PDOC ---
PROGRESS NOTES Diagnosis Problem Problems Medical Problems: (1) Hyperlipidemia Status: Acute (2) Hypertension Status: Acute (3) Scalp laceration Status: Acute (4) Syncope Status: Acute Assessment Problems Medical Problems: (1) Hyperlipidemia Status: Acute (2) Hypertension Status: Acute (3) Scalp laceration Status: Acute (4) Syncope Status: Acute 1. s/p fall, possible syncope - no significant arrhythmias. Negative orthostatics 2. lightheadedness/dizziness - carotid duplex unremarkable. 3. dyspnea on exertion - possible anginal equivalent, Echo revealed normal LV function and wall motion. MPI pending. 4. hypertension - controlled. 5. hyperlipidemia - controlled. Await MPI results. Outpatient event monitor. Subjective no new complaints. Objective Vital Signs Date Time Temp Pulse Resp B/P (MAP) Pulse Ox O2 Delivery O2 Flow Rate FiO2 08/30/17 10:13 78 145/86 08/30/17 10:08 98.1 18 95 Room Air Intake and Output 08/30/17 07:00 Intake Total 1810 ml Balance 1810 ml Intake Oral 720 ml IV Total 1090 ml # Voids 3 Abdomen: Normal bowel sounds, Soft Heart: Regular rate, Normal S1, Normal S2 Extremities: No cyanosis, Normal pulses General: Alert, Oriented X3, Cooperative, No acute distress Lungs: Clear to auscultation Neuro: Normal speech Psych/Mental Status: Mental status NL, Mood NL Review of Relevant I have reviewed the following items kev (where applicable) has been applied. Labs Laboratory Tests Test 08/28/17 22:30 08/29/17 09:46 08/30/17 06:00 White Blood Count 4.5 x10^3/uL (4.0-11.0) 4.1 x10^3/uL (4.0-11.0) Red Blood Count 4.36 x10^6/uL (3.50-5.40) 3.85 x10^6/uL (3.50-5.40) Hemoglobin 12.2 g/dL (12.0-15.5) 10.6 g/dL (12.0-15.5) Hematocrit 37.1 % (36.0-47.0) 32.8 % (36.0-47.0) Mean Corpuscular Volume 85 fL (79-100) 85 fL (79-100) Mean Corpuscular Hemoglobin 28 pg (25-35) 28 pg (25-35) Mean Corpuscular Hemoglobin Concent 33 g/dL (31-37) 32 g/dL (31-37) Red Cell Distribution Width 16.8 % (11.5-14.5) 16.8 % (11.5-14.5) Platelet Count 208 x10^3/uL (140-400) 171 x10^3/uL (140-400) Neutrophils (%) (Auto) 65 % (31-73) 56 % (31-73) Lymphocytes (%) (Auto) 23 % (24-48) 33 % (24-48) Monocytes (%) (Auto) 10 % (0-9) 9 % (0-9) Eosinophils (%) (Auto) 1 % (0-3) 1 % (0-3) Basophils (%) (Auto) 1 % (0-3) 1 % (0-3) Neutrophils # (Auto) 2.9 x10^3uL (1.8-7.7) 2.3 x10^3uL (1.8-7.7) Lymphocytes # (Auto) 1.0 x10^3/uL (1.0-4.8) 1.4 x10^3/uL (1.0-4.8) Monocytes # (Auto) 0.4 x10^3/uL (0.0-1.1) 0.4 x10^3/uL (0.0-1.1) Eosinophils # (Auto) 0.0 x10^3/uL (0.0-0.7) 0.0 x10^3/uL (0.0-0.7) Basophils # (Auto) 0.0 x10^3/uL (0.0-0.2) 0.0 x10^3/uL (0.0-0.2) Sodium Level 143 mmol/L (136-145) 144 mmol/L (136-145) Potassium Level 3.7 mmol/L (3.5-5.1) 3.8 mmol/L (3.5-5.1) Chloride Level 106 mmol/L (98-107) 108 mmol/L (98-107) Carbon Dioxide Level 28 mmol/L (21-32) 27 mmol/L (21-32) Anion Gap 9 (6-14) 9 (6-14) Blood Urea Nitrogen 27 mg/dL (7-20) 16 mg/dL (7-20) Creatinine 1.2 mg/dL (0.6-1.0) 0.9 mg/dL (0.6-1.0) Estimated GFR (Cockcroft-Gault) 44.8 62.5 BUN/Creatinine Ratio 23 (6-20) Glucose Level 145 mg/dL (70-99) 99 mg/dL (70-99) Calcium Level 9.4 mg/dL (8.5-10.1) 8.7 mg/dL (8.5-10.1) Total Bilirubin 0.4 mg/dL (0.2-1.0) Aspartate Amino Transf (AST/SGOT) 32 U/L (15-37) Alanine Aminotransferase (ALT/SGPT) 27 U/L (14-59) Alkaline Phosphatase 55 U/L (46-116) Troponin I Quantitative < 0.017 ng/mL (0-0.055) < 0.017 ng/mL (0-0.055) Total Protein 7.9 g/dL (6.4-8.2) Albumin 3.5 g/dL (3.4-5.0) Albumin/Globulin Ratio 0.8 (1.0-1.7) Triglycerides Level 85 mg/dL (0-150) Cholesterol Level 112 mg/dL (0-200) LDL Cholesterol, Calculated 62 mg/dL (0-100) VLDL Cholesterol, Calculated 17 mg/dL (0-40) Non-HDL Cholesterol Calculated 79 mg/dL (0-129) HDL Cholesterol 33 mg/dL (40-60) Cholesterol/HDL Ratio 3.0 Medications Current Medications Lidocaine HCl 20 ml 1X ONCE IJ Last administered on 08/28/17at 23:10; Start at 22:30; Stop 08/28/17 at 22:32; Status DC Sodium Chloride 1,000 ml @ 125 mls/hr Q8H IV Last administered on 08/29/17at 08 :34; Start 08/29/17 at 00:15; Stop 08/29/17 at 16:46; Status DC Acetaminophen (Tylenol) 650 mg PRN Q4HRS PRN PO FEVER Last administered on 08/29at 23:11; Start 08/29/17 at 00:15; Stop 08/30/17 at 00:15; Status DC Levothyroxine Sodium (Synthroid) 50 mcg DAILY06 PO Last administered on at 05:32; Start 08/29/17 at 06:00 Potassium Chloride (Klor-Con) 20 meq QHS PO Last administered on 08/29/17at 21: 23; Start 08/29/17 at 21:00 Duloxetine HCl (Cymbalta) 60 mg DAILY PO Last administered on 08/30/17 10:12; Start 08/29/17 at 09:00 Fenofibrate (Tricor) 145 mg DAILY PO Last administered on 08/30/17 10:14; Start 08/29/17 at 09:00 Folic Acid (Folic Acid) 1 mg DAILY PO Last administered on 08/30/17 10:12; Start 08/29/17 at 09:00 Hydrochlorothiazide (Hydrodiuril) 25 mg DAILY PO Last administered on 10:13; Start 08/29/17 at 09:00 Hydroxychloroquine Sulfate (Plaquenil) 200 mg BIDWMEALS PO Last administered on 08/30/17 10:12; Start 08/29/17 at 08:00 Lactase (Lactaid) 3,000 unit PRN BFRMEAL PRN PO GI SYMPTOMS; Start 08/29/17 at 08:00; Stop 08/29/17 at 08:00; Status DC Cetirizine HCl (ZyrTEC) 10 mg QHS PO Last administered on 08/29/17at 21:23; Start 08/29/17 at 09:00 Meloxicam (Mobic) 15 mg DAILY PO Last administered on 08/30/17at 10:13; Start at 09:00 Methotrexate (Rheumatrex) 10 mg QFR PO ; Start 08/31/17 at 16:00 Metoprolol Succinate (Toprol Xl) 100 mg DAILY PO Last administered on 10:13; Start 08/29/17 at 09:00 Montelukast Sodium (Singulair) 10 mg QHS PO Last administered on 08/29/17at 21: 23; Start 08/29/17 at 21:00 Pantoprazole Sodium (Protonix) 40 mg DAILYAC PO Last administered on 08/30/17at 10:13; Start 08/30/17 at 09:00 Polyethylene Glycol (miraLAX) 17 gm PRN DAILY PRN PO CONSTIPATION Last administered on 08/29/17at 08:30; Start 08/29/17 at 09:00 Psyllium Hydrophilic Mucilloid (Metamucil) 1 pkt PRN DAILY PRN PO CONSTIPATION Last administered on 08/29/17at 08:30; Start 08/29/17 at 09:00 Albuterol Sulfate (Ventolin) 2.5 mg PRN Q6HRS PRN NEB SHORTNESS OF BREATH; Start 08/29/17 at 07:45; Stop 08/29/17 at 14:18; Status DC Lactase (Lactaid) 9,000 unit PRN BFRMEAL PRN PO GI SYMPTOMS; Start 08/29/17 at 08:00 Albuterol Sulfate (Ventolin) 2.5 mg PRN Q6HRS PRN NEB SHORTNESS OF BREATH; Start 08/29/17 at 14:15 Tramadol HCl (Ultram) 50 mg PRN Q6HRS PRN PO PAIN Last administered on at 18:06; Start 08/29/17 at 17:00 Regadenoson (Lexiscan) 0.4 mg 1X ONCE IV Last administered on 08/30/17at 09:14 ; Start 08/30/17 at 08:00; Stop 08/30/17 at 08:05; Status DC Active Scripts Active Reported Lactase Fast Acting (Lactase) 9,000 Unit Tablet 9,000 Unit PO PRN Levothyroxine Sodium 50 Mcg Tablet 50 Mcg PO DAILY06 Metoprolol Succinate ( Xl ) (Metoprolol Succinate) 100 Mg Tab.er.24h 100 Mg PO DAILY Levocetirizine Dihydrochloride 5 Mg Tablet 5 Mg PO QHS Singulair Tablet (Montelukast Sodium) 10 Mg Tablet 10 Mg PO HS Cymbalta (Duloxetine Hcl) 60 Mg Capsule.dr 60 Mg PO DAILY Alprazolam 1 Mg Tablet 1 Mg PO QHS Hydrochlorothiazide Tablet (Hydrochlorothiazide) 12.5 Mg Tablet 25 Mg PO DAILY Folic Acid 1 Mg Tablet 1 Mg PO DAILY Methotrexate (Methotrexate Sodium) 2.5 Mg Tablet 4 Tab PO QFR Fenofibrate (Fenofibrate Nanocrystallized) 145 Mg Tablet 145 Mg PO DAILY Hydroxychloroquine Sulfate 200 Mg Tablet 200 Mg PO BIDWMEALS Klor-Con M20 (Potassium Chloride) 20 Meq Tab.er.prt 20 Meq PO QHS Omeprazole 20 Mg Capsule.dr 20 Mg PO BID Meloxicam 15 Mg Tablet 15 Mg PO DAILY Metamucil (Psyllium Seed) 425 Gm Powder 425 Gm PO PRN DAILY PRN Miralax (Polyethylene Glycol 3350) 17 Gm Powd.pack 17 Gm PO PRN DAILY PRN Proair Hfa Inhaler (Albuterol Sulfate) 8.5 Gm Hfa.aer.ad 8.5 Gm IH Advair 100-50 Diskus (Fluticasone/Salmeterol) 1 Each Disk.w.dev 1 Each IH Vitals/I & O Vital Sign - Last 24 Hours 08/29/17 08/29/17 08/29/17 08/29/17 14:39 18:06 18:34 19:45 Temp 97.5 97.5 Pulse 66 67 Resp 20 20 B/P (MAP) 135/65 (88) 149/80 (103) Pulse Ox 93 93 95 O2 Delivery Room Air Room Air Room Air Room Air 08/29/17 08/30/17 08/30/17 08/30/17 23:06 05:38 08:00 10:08 Temp 98.2 97.9 98.1 Pulse 64 64 78 Resp 18 12 18 B/P (MAP) 119/67 (84) 114/69 (84) 145/86 (105) Pulse Ox 96 96 95 O2 Delivery Room Air Room Air Room Air Room Air 08/30/17 10:13 Pulse 78 B/P (MAP) 145/86 Intake and Output 08/29/17 08/29/17 08/30/17 15:00 23:00 07:00 Intake Total 714 ml 1096 ml Balance 714 ml 1096 ml RAND LINDA [employer]PAR[employer] KITCH[employer] AIDE August 30, 2017 11:29
[2017-08-30] MEDS ORDERED: ONDANSETRON ODT 4 MG TAB.RAPDIS PO PRN (12:00)
[2017-08-30] MEDS ORDERED: MAG HYDROX/AL HYDROX/SIMETH 30 ML ORAL.SUSP PO PRN (12:00)
--- NOTE | 2017-08-30 13:14 | RAD ---
MR#: [id number] Date of Study: 08/30/2017 Ordering Physician: RAND LINDA, Referring Physician: ANNETTE BLANCO Tech: ROSS Og ARRT (Gurmeet) (N) APPROVED REPORT Test Type: Pharmacological Stress Nurse/Tech: ODILON Marin Test Indications: syncope,LEE, ANGINAL EQUIVALENT Cardiac History: Hypertension, High cholesterol, Family history Medications: See Electronic Medical Record Medical History: See Electronic Medical Record Resting ECG: SR Resting Heart Rate: 63 bpm Resting Blood Pressure: 137/65mmHg Pretest Chest Pain: None Nurse/Tech Notes Consent: The procedure was explained to the patient in lay terms. Informed consent was witnessed. Saji eout was entered into [employer]. History and Stress Test performed by ROSS Og ARRT (Gurmeet) (N) Pharm. Details Pharmacologic stress testing was performed using 0.4mg per 5ml of regadenoson given intravenously ove r 7-10 seconds. Stress Symptoms POST EXERCISE Reason for Termination: Infusion complete Target HR: Yes Max HR: 155 bpm 119% of Maximum Predicted HR: 130 bpm Exercise duration: 13 min:sec, Stage Max Blood Pressure: 165/72mmHg Blood Pressure response to exercise: Normal blood pressure response during stress. Chest Pain: No. ST Change: No. INTERPRETATION Imaging Protocol IMAGE PROTOCOL: Rest Tc-99m/stress Tc-99m 1 day Rest: Stress: Viability: Radiopharm.Tc99m [id number] Sestamibi Bnsi27bJl 34mCi Img Date 08/30/2017 08/30/2017 Inj-Img Crre01nca. 45min. Rest Admin Site:IV - Right AntecubitalAdministrator: ROSS Og ARRT (Gurmeet)(N) Stress Admin Site: IV - Right AntecubitalAdministrator: ROSS Og ARRT (Gurmeet)(N) STRESS DATA End Diast. Vol.99.0mlAv. Heart Rate79.0bpm LVEDV index BSA2.0mlCardiac Output0.1L/min End Syst. Vol.26.0mlCO Index BSA5.8L/min LVESV index BSA0.0mlMyocardial Bhkl942.0g Eject. Otbbvymq27.0% Stress Rates Pk. Fill Rate3.18EDV/secLVtime Pk. Fill 179.06msec Pk. Empty Rate3.81ESV/secLVtime Pk. Bupwi746.64msec 1/3 Pk. Fill1.51EDV/sec Stress Scores Regional WT0.00Summed WT4.00 Regional WM0.00Summed WM0.00 The rest and stress images show normal perfusion, normal contraction and thickening. LV Perf. Quant 17 Seg. SSS0.00 17 Seg. SRS1.00 17 Seg. SDS0.00 Stress Defect Extent (% LAD)0.00Rest Defect Extent (% LAD)6.30Rev. Defect Extent (% LAD)0.00 Stress Defect Extent (% LCX) 0.00Rest Defect Extent (% LCX)0.00Rev. Defect Extent (% LCX)0.00 Stress Defect Extent (% RCA)0.00Rest Defect Extent (% RCA)0.00Rev. Defect Extent (% RCA)0.00 Stress Defect Extent (% CHRISTY)0.00Rest Defect Extent (% CHRISTY)2.40Rev. Defect Extent (% CHRISTY)0.00 Other Information Quality:Average Risk Assessment: Low Risk Conclusion 1. Frequent PVC's on vasodilator testing. 2. Normal perfusion at stress/rest. 3. Low risk study. EF > 70% Signed by : Kal Terry, Electronically Approved : 08/30/2017 13:13:19
[2017-08-30 14:08] VITALS: BP 114/68
--- NOTE | 2017-08-31 11:08 | PN ---
DATE: 08/30/2017 SUBJECTIVE: The patient is resting flat in bed, in no apparent distress. She apparently was nauseated and vomited after they injected the radioisotope for her stress test that was done, the result of which is still pending at the time of this dictation. She managed to walk according to her to the bathroom, but she was dizzy and lightheaded, although so far she has no evidence of postural hypertension. She has bilateral carotid Doppler, which showed there is no significant carotid artery disease bilaterally. PHYSICAL EXAMINATION: GENERAL: Examining her this morning, she was resting flat, comfortably in bed, in no apparent respiratory distress, pale, but no jaundice, cyanosis or thyromegaly. No jugular venous distention. No limb edema. VITAL SIGNS: Her heart rate was 78, blood pressure was 145/86, temperature was 98.1, respiratory rate was 18, and oxygen saturation was 95%. HEAD, EYES, EARS, NOSE AND THROAT: Showed normocephalic, atraumatic. NECK: Supple. HEART: Showed normal first and second heart sounds. No gallop, rub or murmur. CHEST: Clear to auscultation. No crepitation or rhonchi. ABDOMEN: Distended, soft, nontender. NEUROLOGIC: She is awake, alert, responding appropriately. Cranial nerves intact. She moves extremities without difficulty. Her intake and output incompletely recorded. LABORATORY DATA: This morning showed a serum sodium 144, potassium 3.8, chloride 108, bicarbonate 27, anion gap of 9, BUN 16, creatinine 0.9, estimated GFR was 63 mL per minute. Her glucose was 99, calcium was 8.7. Her serum triglycerides 55, total cholesterol was 112, LDL cholesterol 62, VLDL was 17, HDL cholesterol was 33 and the ratio was 3. Her white cell count was 4100, hemoglobin 10, hematocrit 33, MCV 85 and platelet count 271,000. ASSESSMENT: 1. Status post fall with scalp laceration that was stable at the Emergency Room and healing nicely. There was a possible syncopal episode. However, so far, there is no significant arrhythmias on the monitor and negative for any postural hypertension. 2. Lightheadedness, dizziness, carotid duplex unremarkable. 3. Dyspnea on exertion for possible angina equivalent. Echocardiogram revealed normal left ventricular function and wall motion. The patient has had her MVI done, the result of which is still ____. 4. Hypertension, well controlled. 5. Hyperlipidemia, well controlled. PLAN: We will await the result of the stress test and decide the further management accordingly. I will consult the physical therapist. I did order Zofran and some Mylanta for her acid reflux. I will get physical and occupational therapy to evaluate the patient. WIL PECK MD DR: ALDO/sadia JOB#: [id number] / [id number]
--- NOTE | 2017-08-31 13:55 | DS ---
DATE OF DISCHARGE: 08/30/2017 HOSPITAL COURSE: The patient is a 67-year-old female patient, who was admitted with possible syncopal episode. She fell forward sustaining scalp laceration that was stapled in the Emergency Room. She was extensively investigated and basically has had 3 sets of cardiac enzymes that were negative. She has an echocardiogram that showed her left ventricle is normal in size. His left ventricular systolic function is normal and ejection fraction normal range between 55-60%. She has a borderline concentric left ventricular hypertrophy, but no significant aortic valvular stenosis or regurgitation. She has mild mitral regurgitation and trace tricuspid regurgitation. She has carotid Doppler ultrasound, which showed no significant carotid arterial disease bilaterally and she underwent nuclear stress test, which basically showed that the patient has frequent PVCs on vasodilator testing; however, perfusion at stress and rest, low risk study with ejection fraction of more than 70%. The patient was evaluated by the physical therapist and has been up and about, has no further syncopal episode. No feeling of dizziness, lightheadedness. There was no evidence of postural hypertension on orthostatic measurement and a decision was made to discharge her back home with home health. PHYSICAL EXAMINATION: GENERAL: She looked well and was clearly in no apparent respiratory distress, pale, but no jaundice, cyanosis, or thyromegaly. No jugular venous distension. No limb edema. VITAL SIGNS: Her heart rate was 70, blood pressure 114/68, temperature was 97.6, respiratory rate was 18 and oxygen saturation was 96% on room air. HEAD, EYES, EARS, NOSE AND THROAT: Normocephalic, atraumatic. NECK: Supple. HEART: Showed normal first and second heart sounds with no gallop, rub or murmur. CHEST: Clear to auscultation. No crepitation or rhonchi. ABDOMEN: Distended, soft, nontender. No guarding or rigidity. No organomegaly. All hernial orifices intact. Bowel sounds normal. NEUROLOGIC: She is awake, alert, responding appropriately. Her cranial nerves intact. She moves extremities without difficulty. She ambulates with a walker without assistance. LABORATORY DATA: Showed serum sodium 144, potassium 3.8, chloride was 108, bicarbonate 27, anion gap of 9, BUN 16, creatinine 0.9, estimated GFR was 62 mL per minute. Her glucose was 99, calcium was 8.7. His white cell count was 4100, hemoglobin 11, hematocrit 33, MCV 85, platelet count of . DISCHARGE MEDICATIONS: She was discharged home to continue on albuterol sulfate for ProAir 2 puffs 4 times a day, alprazolam 1 mg at bedtime, duloxetine for Cymbalta 60 mg daily. She is on fenofibrate nanocrystallized 145 mg daily, Fluticasone/salmeterol for Advair Diskus 100/50 one puff twice a day, folic acid 1 mg once a day, hydrochlorothiazide 25 mg once a day, hydroxychloroquine sulfate 200 mg twice a day. She is on lactase fast acting 9000 units once a day. She is on levocetirizine 5 mg at bedtime, levothyroxine sodium 50 mcg once a day, Meloxicam 15 mg once a day, methotrexate sodium she takes 6 tablets every Sunday, metoprolol succinate 100 mg daily, Singulair 10 mg once a day, omeprazole 20 mg twice a day, polyethylene glycol 17 grams daily, potassium chloride for Klor-Con 20 mEq once a day, psyllium seed Metamucil p.o. daily p.r.n. for constipation. FINAL DISCHARGE DIAGNOSES: 1. Status post fall with scalp laceration stapled in the Emergency Room that is healing nicely. 2. Possible syncopal episode; however, so far no significant arrhythmia on the monitor and negative for any postural hypertension. Her bilateral carotid Doppler ultrasound and echocardiogram were unrevealing. Her nuclear stress test was unrevealing. 3. Lightheadedness, dizziness. The carotid Doppler, which was unremarkable. The patient has no postural hypertension. 4. Dyspnea on exertion for possible angina equivalent. However, echocardiogram revealed normal left ventricular systolic function and wall motion, and her MDI was negative. 5. Hypertension, well controlled. 6. Hyperlipidemia, well controlled. PLAN: To go home, to be discharged home with home health. WIL PECK MD DR: ALDO/sadia JOB#: [id number] / [id number]
[2017-08-31] MEDS ORDERED: METHOTREXATE SODIUM 2.5 MG TABLET PO SCH (16:00)
== END 2017-08-30 15:55 | disposition home health service (06) | DRG 604 ==
LOC: ER 21:47 → 1 SOUTH 23:49 → ICU 08-30 14:03
PROVIDERS: ADMIT Internal Medicine; ATTEND Internal Medicine
DX: S01.01XA Laceration without foreign body of scalp, initial encounter (principal); N17.0 Acute kidney failure with tubular necrosis; I11.9 Hypertensive heart disease without heart failure; E03.9 Hypothyroidism, unspecified; I20.8 Other forms of angina pectoris; W18.39XA Other fall on same level, initial encounter; E78.5 Hyperlipidemia, unspecified; J45.909 Unspecified asthma, uncomplicated; K21.9 Gastro-esophageal reflux disease without esophagitis; F32.9 Major depressive disorder, single episode, unspecified; F41.9 Anxiety disorder, unspecified; M06.9 Rheumatoid arthritis, unspecified; Z82.49 Family history of ischemic heart disease and other diseases of the circulatory system; Z83.3 Family history of diabetes mellitus; Z90.710 Acquired absence of both cervix and uterus; Z90.49 Acquired absence of other specified parts of digestive tract; Z90.722 Acquired absence of ovaries, bilateral; Y93.89 Activity, other specified; Y92.091 Bathroom in other non-institutional residence as the place of occurrence of the external cause; Y99.8 Other external cause status; Z88.7 Allergy status to serum and vaccine; Z88.8 Allergy status to other drugs, medicaments and biological substances; Z88.0 Allergy status to penicillin; Z91.013 Allergy to seafood
CPT/HCPCS: 12002; 36415; 70450; 71045; 78452; 80048; 80053; 80061; 84484; 85025; 93005; 93017; 93306; 93880; 96374; 96375; 96376; A9500; J2785; Q0162; 99285-25; J2001; J7030

== ENCOUNTER 2018-10-12 22:07 | Emergency (ER) | payer MEDICARE, OTHER ==
[~2018-10-12] VITALS: Ht 160 cm; Wt 82.0 kg
[~2018-10-12 22:07] MED LIST changes: +ALBU2.5V8 IH; -ALBU8.5H8 IH; +ALPR1TAB6 PO; +DULO60CA6 PO; +FENO145T30 PO; +FOLI1TAB16 PO; +HYDR-2145 PO; +HYDR12.58 PO; +HYDR200T5 PO; -HYDR25TA9 PO; +LEVO50TA5 PO; +LEVO5TAB2 PO; +MELO15TA23 PO; +METH2.5T PO; +METO-247 PO; +MONT10TA80 PO; -MONT10TA9 PO; +OMEP20CA10 PO; +POTA20TA4 PO; +[UNRECOGNIZED DRUG - CODE] PO
--- NOTE | 2018-10-12 22:15 | ED.ADGEN ---
Past History Past Medical History: Arthritis, Asthma, Bronchitis, Dementia, Depression, GERD, High Cholesterol, Hypertension, Hypothyroid, Other Past Surgical History: Other Smoking: Non-smoker Alcohol Use: None Drug Use: None Adult General Chief Complaint Chief Complaint ".. I got this spot on my stomach..." [facility] HPI Patient is a 68 year old female who presents with above hx and complaints skin cellulitis and abscess Rt. abdomen. Pt. has 3 cm area of cellulitis and pointing center abscess. area almost appears to be a insect bite that has become infected. Patient does not recall start of this infectious area. Patient has history of allergic reaction to tetanus. No recent travel. No specific ill contacts. Does have multiple medical issues. No history immunosuppression. She follows with Dr. Augustine. Review of Systems Review of Systems Constitutional: Denies fever or chills [] Eyes: Denies change in visual acuity, redness, or eye pain [] HENT: Denies nasal congestion or sore throat [] Respiratory: Denies cough or shortness of breath [] Cardiovascular: No additional information not addressed in HPI [] GI: Denies abdominal pain, nausea, vomiting, bloody stools or diarrhea [] : Denies dysuria or hematuria [] Musculoskeletal: Denies back pain or joint pain [] Integument: Denies rash or skin lesions []- Except cellulitis and abscess as per HPI. Neurologic: Denies headache, focal weakness or sensory changes [] Endocrine: Denies polyuria or polydipsia [] All other systems were reviewed and found to be within normal limits, except as documented in this note. Family History Family History Non-contributory Current Medications Current Medications Current Medications Medications (Trade) Dose Ordered Sig/Deshawn Start Time Stop Time Status Last Admin Dose Admin Trimethoprim/ Sulfamethoxazole (Bactrim Ds) 1 tab 1X ONCE 10/12/18 23:00 10/12/18 23:01 DC 10/12/18 23:06 1 TAB Allergies Allergies Allergies Coded Allergies Type Severity Reaction Last Updated Verified Tetanus Vaccines and Toxoid Allergy Intermediate "Swelling & redness" 08/30/13 Yes aspirin Allergy Intermediate "Ate stomach lining" 08/30/13 Yes Penicillins Allergy Mild "It bothers my stomach" 08/30/13 Yes shellfish derived Allergy Unknown 08/28/17 Yes Physical Exam Physical Exam Constitutional: Moderate acute distress, non-toxic appearance. [] HENT: Normocephalic, atraumatic, bilateral external ears normal, oropharynx moist, no oral exudates, nose normal. [] Eyes: PERRLA, EOMI, conjunctiva normal, no discharge. [] Neck: Normal range of motion, no tenderness, supple, no stridor. [] Cardiovascular:Heart rate regular rhythm, systolic murmur []PMI to the left Lungs & Thorax: Bilateral breath sounds equal at apex auscultation [] Abdomen: Bowel sounds normal, soft, no tenderness, no masses, no pulsatile masses. Midline scar. Does have tenderness at area of cellulitis and abscess no striations noted Skin: Warm, dry, no erythema, no rash. [- Except the abscess as per history of present illness Back: No tenderness, no CVA tenderness. [] Extremities: No tenderness, no cyanosis, no clubbing, ROM intact, ankle edema. [] Neurologic: Alert and oriented X 3, normal motor function, normal sensory function, no focal deficits noted. [] Psychologic: Affect anxious, judgement appears somewhat limited, mood normal. [] Current Patient Data Vital Signs Vital Signs Date Time Temp Pulse Resp B/P (MAP) Pulse Ox O2 Delivery O2 Flow Rate FiO2 10/12/18 23:20 90 18 138/76 (96) 99 Room Air 10/12/18 22:07 98.7 EKG EKG [] Radiology/Procedures Radiology/Procedures [] Course & Med Decision Making Course & Med Decision Making Pertinent Labs and Imaging studies reviewed. (See chart for details) Procedure Note: Incision and drainage- Area of cellulitis cleaned with alcohol- use with 11 blade to drain abscess area. Obtained approximately 2 mL of discolored pus. Dressing applied with antibiotic ointment. Patient use warm salt water compresses 4 times a day. After compresses and massage area were Polysporin 4 times a day. Take Bactrim DS twice a day. Follow-up primary care. Return if any concerns. [] Final Impression Final Impression 1. Cellulitis/ Abscess[] Dragon Disclaimer Dragon Disclaimer This electronic medical record was generated, in whole or in part, using a voice recognition dictation system. Discharge Summary Visit Information Final Diagnosis Problems Medical Problems: (1) Cellulitis Status: Acute Brief Hospital Course Allergies Allergies Coded Allergies Type Severity Reaction Last Updated Verified Tetanus Vaccines and Toxoid Allergy Intermediate "Swelling & redness" 08/30/13 Yes aspirin Allergy Intermediate "Ate stomach lining" 08/30/13 Yes Penicillins Allergy Mild "It bothers my stomach" 08/30/13 Yes shellfish derived Allergy Unknown 08/28/17 Yes Vital Signs Vital Signs Date Time Temp Pulse Resp B/P (MAP) Pulse Ox O2 Delivery O2 Flow Rate FiO2 10/12/18 23:20 90 18 138/76 (96) 99 Room Air 10/12/18 22:07 98.7 Brief Hospital Course Ms. Villeda is a 68 old female who presented with cellulitis and abscess on rt. abd. Discharge Information Condition at Discharge: Improved, Stable Disposition/Orders: D/C to Home Dischare Medications Current Medications Trimethoprim/ Sulfamethoxazole (Bactrim Ds) 1 tab 1X ONCE PO Last administered on 10/12/18at 23:06; Admin Dose 1 TAB; Start 10/12/18 at 23:00; Stop 10/12/18 at 23:01; Status DC Active Scripts Active Bactrim Ds Tablet (Sulfamethoxazole/Trimethoprim) 1 Each Tablet 1 Tab PO BID Reported Lactase Fast Acting (Lactase) 9,000 Unit Tablet 9,000 Unit PO PRN NOT GIVEN THIS ADMISSION NEXT DOSE DUE: DATE:TODAY TIME:IF AND WHEN NEEDED Levothyroxine Sodium 50 Mcg Tablet 50 Mcg PO DAILY06 LAST DOSE GIVEN: DATE:TODAY TIME:BEFORE BREAKFAST NEXT DOSE DUE: DATE:TOMORROW TIME:BEFORE BREAKFAST Metoprolol Succinate ( Xl ) (Metoprolol Succinate) 100 Mg Tab.er.24h 100 Mg PO DAILY LAST DOSE GIVEN: DATE:TODAY TIME:MORNING NEXT DOSE DUE: DATE:TOMORROW TIME:MORNING Levocetirizine Dihydrochloride 5 Mg Tablet 5 Mg PO QHS LAST DOSE GIVEN: DATE:YESTERDAY TIME:BEDTIME NEXT DOSE DUE: DATE:TODAY TIME:BEDTIME Singulair Tablet (Montelukast Sodium) 10 Mg Tablet 10 Mg PO HS LAST DOSE GIVEN: DATE:YESTER TIME:BEDTIME NEXT DOSE DUE: DATE:TODAY TIME:BEDTIME Cymbalta (Duloxetine Hcl) 60 Mg Capsule.dr 60 Mg PO DAILY LAST DOSE GIVEN: DATE:TODAY TIME:MORNING NEXT DOSE DUE: DATE:TOMORROW TIME:MORNING Alprazolam 1 Mg Tablet 1 Mg PO QHS LAST DOSE GIVEN: DATE:YESTERDAY TIME:BEDTIME NEXT DOSE DUE: DATE:TODAY TIME:BEDTIME Hydrochlorothiazide Tablet (Hydrochlorothiazide) 12.5 Mg Tablet 25 Mg PO DAILY LAST DOSE GIVEN: DATE: TIME:MORNING NEXT DOSE DUE: DATE:ORR TIME:MORNING Folic Acid 1 Mg Tablet 1 Mg PO DAILY LAST DOSE GIVEN: DATE: TIME:MORNING NEXT DOSE DUE: DATE:ORR TIME:MORNING Methotrexate (Methotrexate Sodium) 2.5 Mg Tablet 4 Tab PO QFR NOT GIVEN THIS ADMISSION NEXT DOSE DUE: DATE:ORR TIME:MORNING Fenofibrate (Fenofibrate Nanocrystallized) 145 Mg Tablet 145 Mg PO DAILY LAST DOSE GIVEN: DATE: TIME:MORNING NEXT DOSE DUE: DATE: TIME:MORNING Hydroxychloroquine Sulfate 200 Mg Tablet 200 Mg PO BIDWMEALS LAST DOSE GIVEN: DATE: TIME:BREAKFAST NEXT DOSE DUE: DATE: TIME:SUPPER Klor-Con M20 (Potassium Chloride) 20 Meq Tab.er.prt 20 Meq PO QHS LAST DOSE GIVEN: DATE: TIME:BEDTIME NEXT DOSE DUE: DATE:TODAY TIME:BEDTIME Omeprazole 20 Mg Capsule.dr 20 Mg PO BID LAST DOSE GIVEN: DATE: TIME:MORNING NEXT DOSE DUE: DATE: TIME:EVENING Meloxicam 15 Mg Tablet 15 Mg PO DAILY LAST DOSE GIVEN: DATE: TIME:MORNING NEXT DOSE DUE: DATE: TIME:MORNING Metamucil (Psyllium Seed) 425 Gm Powder 425 Gm PO PRN DAILY PRN NOT GIVEN THIS ADMISSION NEXT DOSE DUE: DATE: TIME:IF AND WHEN NEEDED Miralax (Polyethylene Glycol 3350) 17 Gm Powd.pack 17 Gm PO PRN DAILY PRN NOT GIVEN THIS ADMISSION NEXT DOSE DUE: DATE:TODAY TIME:IF AND WHEN NEEDED Proair Hfa Inhaler (Albuterol Sulfate) 8.5 Gm Hfa.aer.ad 8.5 Gm IH NOT GIVEN THIS ADMISSION NEXT DOSE DUE: DATE: TIME:IF AND WHEN NEEDED Advair 100-50 Diskus (Fluticasone/Salmeterol) 1 Each Disk.w.dev 1 Each IH NOT GIVEN THIS ADMISSION NEXT DOSE DUE: DATE: TIME:MORNING Dragon Disclaimer This chart was dictated in whole or in part using Voice Recognition software in a busy, high-work load, and often noisy Emergency Department environment. It may contain unintended and wholly unrecognized errors or omissions. KELLI FUNG MD Oct 12, 2018 22:15
[2018-10-12] MEDS ORDERED: SULF1TAB24 PO (22:41)
[2018-10-12] MEDS ORDERED: SMZ/TMP 800/160MG TABLET. PO ONE (23:00)
[2018-10-12 23:20] VITALS: BP 138/76
== END 2018-10-12 23:10 | disposition home or self-care (01) ==
LOC: ER 22:07
DX: L02.211 Cutaneous abscess of abdominal wall (principal); L03.311 Cellulitis of abdominal wall; M19.90 Unspecified osteoarthritis, unspecified site; J45.909 Unspecified asthma, uncomplicated; K21.9 Gastro-esophageal reflux disease without esophagitis; I10 Essential (primary) hypertension; E78.00 Pure hypercholesterolemia, unspecified; E03.9 Hypothyroidism, unspecified; Z88.0 Allergy status to penicillin; Z88.6 Allergy status to analgesic agent; Z91.013 Allergy to seafood; Z88.7 Allergy status to serum and vaccine
CPT/HCPCS: 10060; 99283

== ENCOUNTER 2018-12-13 12:11 | Emergency (ER) | payer MEDICARE, OTHER ==
[~2018-12-13] VITALS: Ht 160 cm; Wt 82.0 kg
[~2018-12-13 12:11] MED LIST changes: +SULF1TAB24 PO
[2018-12-13 12:26] VITALS: BP 130/98
[2018-12-13] MEDS ORDERED: CLIN300C8 PO (12:43)
[2018-12-13] MEDS ORDERED: LIDOCAINE 1%/EPI 1:100,000 20 ML VIAL. IJ ONE (12:45)
[2018-12-13 12:59] LABS: BASO % 1 % (0-3); EOS % 0 % (0-3); HEMATOCRIT 37.2 % (36.0-47.0); LYMPH # 1.2 x10^3/uL (1.0-4.8); LYMPH % 13 % (24-48); MEAN CORPUSCULAR HEMOGLOBIN 27 pg (25-35); MEAN CORPUSCULAR HGB CONC 32 g/dL (31-37); MEAN CORPUSCULAR VOLUME 83 fL (79-100); MONO # 1.1 x10^3/uL (0.0-1.1); MONO % 12 % (0-9); NEUT # 6.9 x10^3uL (1.8-7.7); NEUT % 75 % (31-73); PLATELET COUNT 223 x10^3/uL (140-400); RED BLOOD COUNT 4.46 x10^6/uL (3.50-5.40); RED CELL DISTRIBUTION WIDTH 15.3 % (11.5-14.5); WHITE BLOOD COUNT 9.3 x10^3/uL (4.0-11.0)
[2018-12-13 13:11] LABS: ALBUMIN 3.4 g/dL (3.4-5.0); ALBUMIN/GLOBULIN RATIO 0.7 (1.0-1.7); CALCIUM 9.9 mg/dL (8.5-10.1); CREATININE 1.2 mg/dL (0.6-1.0); GFR 44.7; POTASSIUM 4.3 mmol/L (3.5-5.1); TOTAL BILIRUBIN 0.5 mg/dL (0.2-1.0); TOTAL PROTEIN 8.5 g/dL (6.4-8.2)
[2018-12-13] MEDS ORDERED: CLINDAMYCIN 600MG PREMIX 50 ML IV ONE (13:45)
--- NOTE | 2018-12-13 15:00 | PHYS DOC ---
Past History Past Medical History: Arthritis, Bronchitis, Hypertension, Hypothyroid, Other Additional Past Medical Histor: DEVELOPMENTAL DELAY Past Surgical History: Cholecystectomy, Hysterectomy Smoking: Non-smoker Alcohol Use: None Drug Use: None Adult General Chief Complaint Chief Complaint: FACE PROBLEM HPI HPI Patient is a 68 YO F with red swollen face left upper lip since sunday pt has develop delay so hx not reliable no fever no vomiting no trauma. Review of Systems Review of Systems Eyes: Denies change in visual acuity, redness, or eye pain [] HENT: Denies nasal congestion or sore throat [] Respiratory: Denies cough or shortness of breath [] Cardiovascular: No additional information not addressed in HPI [] GI: Denies abdominal pain, nausea, vomiting, bloody stools or diarrhea [] : Denies dysuria or hematuria [] Musculoskeletal: Denies back pain or joint pain [] Neurologic: Denies headache, focal weakness or sensory changes [] Endocrine: Denies polyuria or polydipsia [] All other systems were reviewed and found to be within normal limits, except as documented in this note. Current Medications Current Medications Current Medications Medications (Trade) Dose Ordered Sig/Deshawn Start Time Stop Time Status Last Admin Dose Admin Clindamycin Phosphate 50 ml @ 100 mls/hr 1X ONCE 12/13/18 13:45 12/13/18 14:14 DC 12/13/18 13:45 100 MLS/HR Lidocaine/ Epinephrine (Xylocaine 1%-Epi 1:100,000) 20 ml 1X ONCE 12/13/18 12:45 12/13/18 12:47 DC 12/13/18 13:52 20 ML Allergies Allergies Allergies Coded Allergies Type Severity Reaction Last Updated Verified Tetanus Vaccines and Toxoid Allergy Intermediate "Swelling & redness" 08/30/13 Yes aspirin Allergy Intermediate "Ate stomach lining" 08/30/13 Yes Penicillins Allergy Mild "It bothers my stomach" 08/30/13 Yes shellfish derived Allergy Unknown 08/28/17 Yes Physical Exam Physical Exam Constitutional: Well developed, well nourished, no acute distress, non-toxic appearance. [] HENT: Normocephalic, atraumatic, bilateral external ears normal, oropharynx moist, no oral exudates, nose normal. [] Eyes: PERRLA, EOMI, conjunctiva normal, no discharge. [] Neck: Normal range of motion, no tenderness, supple, no stridor. [] Cardiovascular:Heart rate regular rhythm, no murmur [] Lungs & Thorax: Bilateral breath sounds clear to auscultation [] Abdomen: Bowel sounds normal, soft, no tenderness, no masses, no pulsatile masses. [] Skin: erythema noted left upper lip and also area of central exudate just at upper lateral lip border. Neurologic: Alert and oriented X 3, normal motor function, normal sensory function, no focal deficits noted. Current Patient Data Vital Signs Vital Signs Date Time Temp Pulse Resp B/P (MAP) Pulse Ox O2 Delivery O2 Flow Rate FiO2 12/13/18 12:26 98.1 90 18 97 Room Air Lab Results Laboratory Tests Test 12/13/18 12:40 White Blood Count 9.3 x10^3/uL (4.0-11.0) Red Blood Count 4.46 x10^6/uL (3.50-5.40) Hemoglobin 12.0 g/dL (12.0-15.5) Hematocrit 37.2 % (36.0-47.0) Mean Corpuscular Volume 83 fL (79-100) Mean Corpuscular Hemoglobin 27 pg (25-35) Mean Corpuscular Hemoglobin Concent 32 g/dL (31-37) Red Cell Distribution Width 15.3 % (11.5-14.5) H Platelet Count 223 x10^3/uL (140-400) Neutrophils (%) (Auto) 75 % (31-73) H Lymphocytes (%) (Auto) 13 % (24-48) L Monocytes (%) (Auto) 12 % (0-9) H Eosinophils (%) (Auto) 0 % (0-3) Basophils (%) (Auto) 1 % (0-3) Neutrophils # (Auto) 6.9 x10^3uL (1.8-7.7) Lymphocytes # (Auto) 1.2 x10^3/uL (1.0-4.8) Monocytes # (Auto) 1.1 x10^3/uL (0.0-1.1) Eosinophils # (Auto) 0.0 x10^3/uL (0.0-0.7) Basophils # (Auto) 0.0 x10^3/uL (0.0-0.2) Sodium Level 139 mmol/L (136-145) Potassium Level 4.3 mmol/L (3.5-5.1) Chloride Level 103 mmol/L (98-107) Carbon Dioxide Level 25 mmol/L (21-32) Anion Gap 11 (6-14) Blood Urea Nitrogen 14 mg/dL (7-20) Creatinine 1.2 mg/dL (0.6-1.0) H Estimated GFR (Cockcroft-Gault) 44.7 BUN/Creatinine Ratio 12 (6-20) Glucose Level 128 mg/dL (70-99) H Calcium Level 9.9 mg/dL (8.5-10.1) Total Bilirubin 0.5 mg/dL (0.2-1.0) Aspartate Amino Transferase (AST) 34 U/L (15-37) Alanine Aminotransferase (ALT) 16 U/L (14-59) Alkaline Phosphatase 46 U/L (46-116) Total Protein 8.5 g/dL (6.4-8.2) H Albumin 3.4 g/dL (3.4-5.0) Albumin/Globulin Ratio 0.7 (1.0-1.7) L EKG EKG [] Radiology/Procedures Radiology/Procedures [] Course & Med Decision Making Course & Med Decision Making 68 yo f with facial cellulitis localized abscess formation i and d verbal consent, lido with epi pt tolerated well. drained out approx 3-4 ml pus, the scab was unroofed one cm hole created iwthout incision wound dressed come back in 2-3 days for a rehceck. clinda rx Dragon Disclaimer Dragon Disclaimer This electronic medical record was generated, in whole or in part, using a voice recognition dictation system. Departure Departure: Impression: Primary Impression: Cellulitis Disposition: 01 HOME, SELF-CARE Condition: STABLE Patient Instructions: Cellulitis, [id number] Scripts Clindamycin Hcl (CLINDAMYCIN HCL) 300 Mg Capsule 1 CAP PO TID for CELLULITIS., #21 CAP Prov: JODI MASCORRO MD 12/13/18 JODI MASCORRO MD Dec 13, 2018 15:00
== END 2018-12-13 14:15 | disposition home or self-care (01) ==
LOC: ER 12:11
DX: K13.0 Diseases of lips (principal); L03.211 Cellulitis of face; I10 Essential (primary) hypertension; E03.9 Hypothyroidism, unspecified; Z88.7 Allergy status to serum and vaccine; Z88.6 Allergy status to analgesic agent; Z88.0 Allergy status to penicillin; Z91.013 Allergy to seafood
CPT/HCPCS: 10060; 36415; 80053; 85025; 96365; 99284; J3490

== ENCOUNTER 2018-12-15 16:53 | Emergency (ER) | payer MEDICARE, OTHER ==
[~2018-12-15] VITALS: Ht 160 cm; Wt 82.0 kg
[~2018-12-15 16:53] MED LIST changes: +CLIN300C8 PO
[2018-12-15 17:15] VITALS: BP 136/50
--- NOTE | 2018-12-15 17:25 | PHYS DOC ---
Past History Past Medical History: Arthritis, Bronchitis, Hypertension, Hypothyroid, Other Additional Past Medical Histor: DEVELOPMENTAL DELAY Past Surgical History: Cholecystectomy, Hysterectomy Smoking: Non-smoker Alcohol Use: None Drug Use: None Adult General Chief Complaint Chief Complaint: CELLULITIS HPI HPI Patient is a 68 yo female who is presenting for a wound check. She has a cellulitis of the fascia and abscess of her left lip. I did drain that couple of days ago actually doing better overall redness is going down a few blisters are forming wanted to get checked out brought in by family member. No fever taking antibiotics no issues with that Review of Systems Review of Systems Constitutional: Denies fever or chills [] Eyes: Denies change in visual acuity, redness, or eye pain [] HENT: Denies nasal congestion or sore throat [] Respiratory: Denies cough or shortness of breath [] Cardiovascular: No additional information not addressed in HPI [] GI: Integument: All other systems were reviewed and found to be within normal limits, except as documented in this note. Allergies Allergies Allergies Coded Allergies Type Severity Reaction Last Updated Verified Tetanus Vaccines and Toxoid Allergy Intermediate "Swelling & redness" 08/30/13 Yes aspirin Allergy Intermediate "Ate stomach lining" 08/30/13 Yes Penicillins Allergy Mild "It bothers my stomach" 08/30/13 Yes shellfish derived Allergy Unknown 08/28/17 Yes Physical Exam Physical Exam Constitutional: Well developed, well nourished, no acute distress, non-toxic appearance. [] HENT: Normocephalic, atraumatic, bilateral external ears normal, oropharynx moist, no oral exudates, nose normal. [] Eyes: PERRLA, EOMI, conjunctiva normal, no discharge. [] Neck: Normal range of motion, no tenderness, supple, no stridor. [] Abdomen: Bowel sounds normal, soft, no tenderness, no masses, no pulsatile masses. [] Skin: There is erythema and induration of the left upper lip is actually much improved from prior. There are few scattered blisters there is a very very small focal area of possible residual fluctuance but is significantly improved from prior Back: No tenderness, no CVA tenderness. [] Extremities: No tenderness, no cyanosis, no clubbing, ROM intact, no edema. [] Neurologic: Alert and oriented X 3, normal motor function, normal sensory function, no focal deficits noted. [] Psychologic: Affect normal, judgement normal, mood normal. [] Current Patient Data Vital Signs Vital Signs Date Time Temp Pulse Resp B/P (MAP) Pulse Ox O2 Delivery O2 Flow Rate FiO2 12/15/18 17:15 98.1 63 18 95 Room Air EKG EKG [] Radiology/Procedures Radiology/Procedures [] Course & Med Decision Making Course & Med Decision Making Pertinent Labs and Imaging studies reviewed. (See chart for details) []I believe the patient's facial cellulitis is improving a lot. I recommended continue antibiotics for now we talked about reasons to come back if he were to increase in size unable to take antibiotics not improving as expected. There may be a very small amount of residual pus but at this point I think it's reasonable to continue the antibiotics. We talked about the possibility of a CT scan but for now the conservative course with an back seems reasonable family members comfortable with that Dragon Disclaimer Dragon Disclaimer This electronic medical record was generated, in whole or in part, using a voice recognition dictation system. Departure Departure: Impression: Primary Impression: Cellulitis Disposition: 01 HOME, SELF-CARE Condition: STABLE Referrals: REJI WANG (PCP) Patient Instructions: Cellulitis, [id number] JODI MASCORRO MD Dec 15, 2018 17:25
== END 2018-12-15 17:18 | disposition home or self-care (01) ==
LOC: ER 16:53
DX: L03.211 Cellulitis of face (principal); I10 Essential (primary) hypertension; E03.9 Hypothyroidism, unspecified; M19.90 Unspecified osteoarthritis, unspecified site; Z88.7 Allergy status to serum and vaccine; Z88.1 Allergy status to other antibiotic agents; Z88.0 Allergy status to penicillin; Z91.013 Allergy to seafood
CPT/HCPCS: 99281

== ENCOUNTER → 2019-02-12 | Outpatient (CLI) | payer MEDICARE, OTHER ==
--- NOTE | 2019-02-12 16:46 | RAD ---
EXAM: Abdomen, 2 views. HISTORY: Pain. COMPARISON: None. FINDINGS: Frontal upright and supine views of abdomen are obtained. There is gas and stool within the colon and rectal vault. No abnormally dilated loop of bowel is seen. There is no free air. There are surgical clips within the right upper quadrant and pelvis. There are findings consistent with ventral abdominal wall surgery. IMPRESSION: Nonobstructive bowel gas pattern. Electronically signed by: Kerrie Mendieta MD (02/12/2019 4:43 PM) [place] [id number]
== END | disposition home or self-care (01) ==
LOC: PMG 14:58
PROVIDERS: ATTEND Physician Assistant
DX: R10.9 Unspecified abdominal pain (principal)
CPT/HCPCS: 74019

== ENCOUNTER → 2019-02-21 | Outpatient (CLI) | payer MEDICARE, OTHER ==
--- NOTE | 2019-02-21 15:52 | RAD ---
DATE: 02/21/2019 EXAM: DIGITAL SCREEN BILAT W/CAD HISTORY: Routine screening COMPARISON: 12/20/2015, 04/23/2014 mammographic exams This study was interpreted with the benefit of Computerized Aided Detection (CAD). Breast Density: SCATTERED The breast parenchyma shows scattered fibroglandular densities. Breast parenchyma level B. FINDINGS: No suspicious calcification, mass, or distortion. IMPRESSION: Stable BI-RADS CATEGORY: 1 NEGATIVE RECOMMENDED FOLLOW-UP: 12M 12 MONTH FOLLOW-UP PQRS compliance statement: Patient information was entered into a reminder system with a target due date for the next mammogram. Mammography is a sensitive method for finding small breast cancers, but it does not detect them all and is not a substitute for careful clinical examination. A negative mammogram does not negate a clinically suspicious finding and should not result in delay in biopsying a clinically suspicious abnormality. "Our facility is accredited by the [employer] Mammography Program."
== END | disposition home or self-care (01) ==
LOC: MAMMO 13:00
PROVIDERS: ATTEND Physician Assistant
DX: Z12.31 Encounter for screening mammogram for malignant neoplasm of breast (principal)
CPT/HCPCS: 77067

== ENCOUNTER → 2020-06-28 | Outpatient (CLI) | payer MEDICARE, OTHER ==
[~2020-06-28] MED LIST changes: -CLIN300C8 PO; +CLIN300C9 PO; +FENO145T3 PO; -FENO145T30 PO; -OMEP20CA10 PO; +OMEP20CA16 PO
--- NOTE | 2020-06-29 11:49 | RAD ---
DATE: 06/28/2020 11:10 AM EXAM: DIGITAL SCREEN BILAT W/CAD HISTORY: Screening COMPARISON: 02/21/2019 Bilateral full field craniocaudal and mediolateral oblique images were obtained using digital technique. This study was interpreted with the benefit of Computerized Aided Detection (CAD). FINDINGS: Breast Density: SCATTERED The breast parenchyma shows scattered fibroglandular densities. Breast parenchyma level B No suspicious masses, microcalcifications or architectural distortion is present to suggest malignancy in either breast. The visualized axillae are unremarkable. IMPRESSION: No mammographic evidence of malignancy. BI-RADS CATEGORY: 1 NEGATIVE RECOMMENDED FOLLOW-UP: 12M 12 MONTH FOLLOW-UP Annual screening mammography is recommended, unless clinically indicated sooner based on symptoms or change in physical exam. PQRS compliance statement: Patient information was entered into a reminder system with a target due date for the next mammogram. Mammography is a sensitive method for finding small breast cancers, but it does not detect them all and is not a substitute for careful clinical examination. A negative mammogram does not negate a clinically suspicious finding and should not result in delay in biopsying a clinically suspicious abnormality. "Our facility is accredited by the [employer] Mammography Program."
== END ==
LOC: MAMMO 11:00
DX: Z12.31 Encounter for screening mammogram for malignant neoplasm of breast (principal)
CPT/HCPCS: 77067

== ENCOUNTER → 2020-07-05 | Outpatient (CLI) | payer MEDICARE, OTHER ==
--- NOTE | 2020-07-05 14:47 | RAD ---
EXAM: Maxillofacial bone CT without contrast. HISTORY: Pain. TECHNIQUE: Computed tomographic images of the maxillofacial bones were obtained without contrast. *One or more of the following individualized dose reduction techniques were utilized for this examina tion: 1. Automated exposure control. 2. Adjustment of the mA and/or kV according to patient size. 3. Use of iterative reconstruction technique. COMPARISON: None. FINDINGS: There is minimal ethmoid and maxillary sinus mucosal thickening. There is obstruction of th e ostiomeatal units. There is minimal leftward nasal septal deviation. There is no sinus air-fluid le domi. There is no sinus wall erosion or sclerosis. No suspicious calvarial lesion is seen. There is no mass effect or midline shift involving the brain. There are multiple missing teeth the orbits are un remarkable. IMPRESSION: 1. Minimal paranasal sinus mucosal thickening with obstruction of the ostiomeatal units. 2. Minimal nasal septal deviation. Electronically signed by: Kerrie Mendieta MD (07/05/2020 2:45 PM) [id number]
== END ==
LOC: CT 12:48
PROVIDERS: ATTEND Physician Assistant Medical
DX: J32.8 Other chronic sinusitis (principal); J34.2 Deviated nasal septum
CPT/HCPCS: 70486

== ENCOUNTER → 2021-08-24 | Outpatient (CLI) | payer MEDICARE, OTHER ==
[~2021-08-24] MED LIST changes: +CLIN-95 PO; -CLIN300C9 PO; -DULO60CA6 PO; +DULO60CA7 PO; +POTA-121 PO; -POTA20TA4 PO
--- NOTE | 2021-08-24 16:34 | RAD ---
EXAM: BILATERAL DIGITAL SCREENING MAMMOGRAPHY. HISTORY: Routine mammographic screening. TECHNIQUE: Bilateral full field digital images were obtained in CC and MLO projections. Computer-aide d detection was applied. COMPARISON: 06/28/2020. COMPOSITION: B. There are scattered areas of fibroglandular density. FINDINGS: There are no suspicious masses, microcalcifications or architectural distortion. The parenc hymal pattern is stable. BI-RADS CATEGORY 1: Negative. RECOMMENDATION: 1. Routine screening mammography in one year. If mammography demonstrates dense breast tissue (heterogenously dense or extremely dense, category C or D), which could hide abnormalities, and if other risk factors for breast cancer have been identifi ed, supplemental screening tests that may be suggested by the ordering physician may be of benefit. D ense breast tissue, in and of itself, is a relatively common condition. Therefore, this information i s not provided to cause undue concern, but rather to raise awareness and to promote discussion with t he referring physician regarding the presence of other risk factors, in addition to dense breast tiss ue. The results of this mammography examination is provided to the patient and referring physician. T he patient should contact their referring physician if any questions or concerns exist regarding this report. PQRS compliance statement - Patient information was entered into a reminder system with a target due date for the next mammogram. "Our facility is accredited by the [employer] Mammography [employer]." Electronically signed by: Rajesh Bowie MD (08/24/2021 4:32 PM) [id number]
== END ==
LOC: MAMMO 12:44
PROVIDERS: ATTEND Physician Assistant
DX: Z12.31 Encounter for screening mammogram for malignant neoplasm of breast (principal)
CPT/HCPCS: 77067